=== PATIENT | male | born 1955 | race African-American/Black ===

== ENCOUNTER 2016-07-07 10:02 | Outpatient (CLI) | payer MEDICARE, MEDICAID ==
[2016-07-07 11:33] LABS: Anion Gap 28 mmol/L (10-20); BUN (Urea Nitrogen) 13 mg/dL (8.4-25.7); Calc. Creatinine Clearance 0 mL/min (70-130); Carbon Dioxide 14 mmol/L (23-31); Chloride 94 mmol/L (98-107); Estimated GFR-MDRD 48; Glucose 526 mg/dL (80-115); Potassium 3.6 mmol/L (3.5-5.1); Sodium 132 mmol/L (136-145)
== END 2016-07-07 10:03 | disposition home or self-care (01) ==
LOC: MADLAB 10:02
PROVIDERS: ATTEND Internal Medicine Nephrology
DX: E55.9 Vitamin D deficiency, unspecified (principal); I12.9 Hypertensive chronic kidney disease with stage 1 through stage 4 chronic kidney disease, or unspecified chronic kidney disease; N18.3 Chronic kidney disease, stage 3 (moderate)
CPT/HCPCS: 36415; 80048

== ENCOUNTER 2017-01-08 15:06 | Outpatient (CLI) | payer MEDICAID, MEDICARE ==
[2017-01-08 16:09] LABS: Anion Gap 25 mmol/L (10-20); BUN (Urea Nitrogen) 17 mg/dL (8.4-25.7); Calc. Creatinine Clearance 0 mL/min (70-130); Calcium 9.7 mg/dL (7.8-10.44); Carbon Dioxide 13 mmol/L (23-31); Chloride 99 mmol/L (98-107); Estimated GFR-MDRD 46; Glucose 307 mg/dL (80-115); Sodium 133 mmol/L (136-145)
== END 2017-01-08 15:07 | disposition home or self-care (01) ==
LOC: MADLAB 15:06
PROVIDERS: ATTEND Internal Medicine Nephrology
DX: I12.9 Hypertensive chronic kidney disease with stage 1 through stage 4 chronic kidney disease, or unspecified chronic kidney disease (principal); N18.3 Chronic kidney disease, stage 3 (moderate); E55.9 Vitamin D deficiency, unspecified
CPT/HCPCS: 36415; 80048; 82306; 83970

== ENCOUNTER 2017-02-08 09:03 | Outpatient (CLI) | payer MEDICARE ==
[2017-02-08 09:36] LABS: Hemoglobin A1c 9.9 % (4.0-6.0)
[2017-02-08 09:40] LABS: #Basophils 0.1 thou/uL (0.0-0.2); #Lymphocytes 2.1 thou/uL (1.20-3.40); #Monocytes 0.3 thou/uL (0.11-0.59); #Neutrophils 4.2 thou/uL (1.40-6.50); %Basophils 0.9 % (0.0-1.0); %Eosinophils 0.5 % (0.0-10.0); %Lymphocytes 31.6 % (21.0-51.0); %Monocytes 4.4 % (0.0-10.0); %Neutrophils 62.6 % (42.0-75.0); Mean Corpuscular HGB CONC 34.6 g/dL (32.0-36.0); Mean Corpuscular Hemoglobin 30.1 pg (27.0-31.0); Mean Corpuscular Volume 87.2 fl (80.0-94.0); Mean Platelet Volume 8.7 fL (7.4-10.4); Platelet Count 188 thou/uL (130-400); RBC Distribution Width 13.9 % (11.5-14.5); Red Blood Cell (RBC) Count 3.98 mill/uL (4.70-6.10); White Blood Cell (WBC) Count 6.8 thou/uL (4.8-10.8)
[2017-02-08 14:47] LABS: Potassium 4.4 mmol/L (3.5-5.1); Sodium 140 mmol/L (136-145)
[2017-02-08 14:48] LABS: Anion Gap 18 mmol/L (10-20); BUN (Urea Nitrogen) 25 mg/dL (8.4-25.7); Carbon Dioxide 23 mmol/L (23-31); Chloride 104 mmol/L (98-107)
[2017-02-08 14:49] LABS: Bilirubin, Total 0.7 mg/dL (0.2-1.2); Calc. Creatinine Clearance 0 mL/min (70-130); Calcium 9.8 mg/dL (7.8-10.44); Estimated GFR-MDRD 45; Glucose 289 mg/dL (80-115)
[2017-02-08 14:50] LABS: AST (SGOT) 14 U/L (5-34); Albumin 4.1 g/dL (3.4-4.8); Alkaline Phosphatase 53 U/L (40-150); Globulin 2.9 g/dL (2.4-3.5)
[2017-02-08 14:51] LABS: ALT (SGPT) 16 U/L (8-55)
[2017-02-08 15:21] LABS: Cholesterol 726 mg/dl (< 200 Desired); HDL Cholesterol 25 mg/dL (>60 Neg Risk)
[2017-02-08 15:51] LABS: Triglycerides 2717 mg/dL (Less than 150)
[2017-02-08 17:04] LABS: Creatinine, Urine 148.43 mg/dL (63-166); Microalbumin Urine Less than 1.0 mg/dL (0.5-50.0); Microalbumin/Creat Ratio 6.7 mg/g (Less than 30)
== END 2017-02-08 09:04 ==
LOC: MADLABBHPM 09:03
PROVIDERS: ATTEND Family Medicine
DX: E78.5 Hyperlipidemia, unspecified (principal); E11.65 Type 2 diabetes mellitus with hyperglycemia; I10 Essential (primary) hypertension
CPT/HCPCS: 36415; 80053; 80061; 82043; 83036; 84443; 85025

== ENCOUNTER 2017-10-11 17:36 | Emergency (ER) | payer MEDICARE, MEDICAID ==
[~2017-10-11 17:36] MED LIST: Sodium Chloride 0.9% 1,000 ML BAG ONE; Sodium Chloride 0.9% 100 ML BAG ONE
[2017-10-11 18:28] LABS: ALT (SGPT) 18 U/L (8-55); AST (SGOT) 13 U/L (5-34); Albumin 3.9 g/dL (3.4-4.8); Alkaline Phosphatase 69 U/L (40-150); Anion Gap 24 mmol/L (10-20); BUN (Urea Nitrogen) 31 mg/dL (8.4-25.7); Bilirubin, Total 0.9 mg/dL (0.2-1.2); Calc. Creatinine Clearance 0 mL/min (70-130); Calcium 10.2 mg/dL (7.8-10.44); Carbon Dioxide 16 mmol/L (23-31); Chloride 92 mmol/L (98-107); Estimated GFR-MDRD 29; Globulin 5.4 g/dL (2.4-3.5); Glucose 447 mg/dL (80-115); Potassium 4.7 mmol/L (3.5-5.1); Protein, Total 9.3 g/dL (5.8-8.1); Sodium 127 mmol/L (136-145)
[2017-10-11] MEDS ORDERED: Insulin Regular 300 UNITS/3 ML VIAL ONE (18:34)
[2017-10-11 18:38] LABS: %Neutrophils 70.6 % (42.0-75.0); Hemoglobin 9.5 g/dL (14.0-18.0); Mean Corpuscular HGB CONC 35.6 g/dL (32.0-36.0); Mean Corpuscular Hemoglobin 29.7 pg (27.0-31.0); Mean Corpuscular Volume 83.5 fL (80.0-94.0); Platelet Count 186 thou/uL (130-400); RBC Distribution Width 14.1 % (11.5-14.5); White Blood Cell (WBC) Count 10.9 thou/uL (4.8-10.8)
[2017-10-11 18:39] LABS: #Basophils 0.2 thou/uL (0.0-0.2); #Eosinphils 0.2 thou/uL (0.0-0.7); #Monocytes 0.8 thou/uL (0.11-0.59); #Neutrophils 7.7 thou/uL (1.40-6.50); %Basophils 1.7 % (0.0-1.0); %Eosinophils 1.5 % (0.0-10.0); %Lymphocytes 18.7 % (21.0-51.0); %Monocytes 7.5 % (0.0-10.0)
[2017-10-11 18:52] LABS: Bilirubin Negative (Negative); Blood, Urine Negative (Negative); Clarity Slightly Cloudy (Clear); Glucose, Urine (Dipstick) >=1000 mg/dL (Negative); Leukocyte Small (Negative); Nitrite Negative (Negative); Protein, Urine (Dipstick) Negative (Neg-Trace); Urobilinogen 0.2 mg/dL (0.2-1.0)
[2017-10-11 18:54] LABS: Bacteria/HPF 2+ HPF (None Seen); RBC/HPF 0-3 HPF (0-3); Yeast-All Forms 1+ HPF (None Seen)
[2017-10-11] MEDS ORDERED: cefTRIAXone\\ROCEPHIN 1 GM VIAL ONE (19:20)
== END 2017-10-11 20:09 | disposition home or self-care (01) ==
LOC: MADERS 17:36
DX: E11.65 Type 2 diabetes mellitus with hyperglycemia (principal); E78.5 Hyperlipidemia, unspecified; I10 Essential (primary) hypertension; F32.9 Major depressive disorder, single episode, unspecified; Z79.899 Other long term (current) drug therapy; Z79.82 Long term (current) use of aspirin
CPT/HCPCS: 36416; 80053; 81003; 81015; 85025; 96361; 96365; 96375; J0696; J1815; J7050

== ENCOUNTER 2017-10-15 20:50 | Emergency (ER) | payer MEDICARE, MEDICAID ==
[~2017-10-15 20:50] MED LIST changes: -Sodium Chloride 0.9% 100 ML BAG ONE
[2017-10-15 21:33] LABS: #Lymphocytes 1.9 thou/uL (1.20-3.40); #Monocytes 0.6 thou/uL (0.11-0.59); #Neutrophils 5.8 thou/uL (1.40-6.50); %Basophils 0.5 % (0.0-1.0); %Eosinophils 0.5 % (0.0-10.0); %Lymphocytes 22.4 % (21.0-51.0); %Monocytes 7.4 % (0.0-10.0); %Neutrophils 69.2 % (42.0-75.0); Hemoglobin 9.9 g/dL (14.0-18.0); Mean Corpuscular HGB CONC 34.7 g/dL (32.0-36.0); Mean Corpuscular Hemoglobin 28.5 pg (27.0-31.0); Mean Corpuscular Volume 82.3 fl (80.0-94.0); Mean Platelet Volume 7.8 fL (7.4-10.4); Platelet Count 227 thou/uL (130-400); RBC Distribution Width 14.1 % (11.5-14.5); Red Blood Cell (RBC) Count 3.49 mill/uL (4.70-6.10); White Blood Cell (WBC) Count 8.4 thou/uL (4.8-10.8)
[2017-10-15 21:36] LABS: PTT 35.3 SEC (22.9-36.1); Prothrombin Time 13.6 SEC (12.0-14.7)
[2017-10-15 21:48] LABS: ALT (SGPT) 29 U/L (8-55); AST (SGOT) 39 U/L (5-34); Albumin 4.1 g/dL (3.4-4.8); Alkaline Phosphatase 65 U/L (40-150); Anion Gap 18 mmol/L (10-20); BUN (Urea Nitrogen) 45 mg/dL (8.4-25.7); Bilirubin, Total 0.7 mg/dL (0.2-1.2); CK (CPK) 493 U/L (30-200); Calc. Creatinine Clearance 0 mL/min (70-130); Calcium 9.6 mg/dL (7.8-10.44); Chloride 103 mmol/L (98-107); Estimated GFR-MDRD 27; Globulin 4.2 g/dL (2.4-3.5); Glucose 104 mg/dL (80-115); Potassium 4.2 mmol/L (3.5-5.1); Protein, Total 8.3 g/dL (5.8-8.1); Sodium 136 mmol/L (136-145)
[2017-10-15 21:49] LABS: CKMB 3.3 ng/mL (0-6.6)
[2017-10-15 21:53] LABS: Carbon Dioxide 19 mmol/L (23-31)
--- NOTE | 2017-10-15 22:03 | CT ---
CT OF THE BRAIN WITHOUT CONTRAST: 10/15/17 COMPARISON: 02/12/16. HISTORY: Syncope. TECHNIQUE: Multiple contiguous axial images were obtained in a CT of the brain without contrast. FINDINGS: There is scattered hypodensities in the subcortical and periventricular white matter, likely secondar y to small vessel ischemic disease. No large confluent infarction is seen. There is no evidence of hy drocephalus, intracranial hemorrhage or extra-axial fluid collection. The calvarium and overlying soft tissues are unremarkable. The visualized paranasal sinuses and masto id air cells are well aerated. IMPRESSION: No evidence of acute intracranial abnormality. POS: [facility]
--- NOTE | 2017-10-15 22:08 | CT ---
CT CERVICAL SPINE WITHOUT CONTRAST: 10/15/17 COMPARISON: None. HISTORY: Syncope, fall, and neck pain. TECHNIQUE: Multiple contiguous axial images were obtained in a CT of the cervical spine without contrast. Sagitt al and coronal reformats were performed. FINDINGS: There are large bulky anterior bridging osteophytes in the cervical spine. The vertebral bodies demon strate normal height and alignment without acute fracture or subluxation. No prevertebral soft tissue swelling is seen. The posterior facets are well aligned. Normal alignment of the skull base with the cervical spine is seen. Calcifications are seen in the left carotid artery. IMPRESSION: Degenerative changes of the cervical spine without acute osseous abnormality. POS: [facility]
--- NOTE | 2017-10-15 22:10 | RAD ---
SINGLE VIEW OF THE CHEST: 10/15/17 COMPARISON: 02/09/16 HISTORY: Syncope. FINDINGS: Single view of the chest shows a normal sized cardiomediastinal silhouette. There is no evidence of c onsolidation, mass, or pleural effusion. The bones are unremarkable. IMPRESSION: No evidence of acute cardiopulmonary disease. POS: [facility]
[2017-10-15] MEDS ORDERED: Ondansetron HCl/PF 4 MG/2 ML Vial ONE (22:21)
[2017-10-15] MEDS ORDERED: Morphine 10 MG/ML VIAL ONE (22:30)
== END 2017-10-15 23:52 | disposition home or self-care (01) ==
LOC: MADERS 20:50
DX: R55 Syncope and collapse (principal); I10 Essential (primary) hypertension; E11.9 Type 2 diabetes mellitus without complications; E78.5 Hyperlipidemia, unspecified; F32.9 Major depressive disorder, single episode, unspecified; Z79.82 Long term (current) use of aspirin; Z79.84 Long term (current) use of oral hypoglycemic drugs; Z79.899 Other long term (current) drug therapy; Z79.02 Long term (current) use of antithrombotics/antiplatelets
CPT/HCPCS: 70450; 71045; 72125; 80053; 82553; 83880; 84484; 85025; 85610; 85730; 93005; 94760; 96361; 96374; 96375; J2270; J2405; J7050

== ENCOUNTER 2017-12-03 10:15 | Outpatient (CLI) | payer MEDICARE, MEDICAID ==
[2017-12-03 11:09] LABS: Anion Gap 22 mmol/L (10-20); BUN (Urea Nitrogen) 28 mg/dL (8.4-25.7); Calc. Creatinine Clearance 0 mL/min (70-130); Calcium 9.9 mg/dL (7.8-10.44); Carbon Dioxide 14 mmol/L (23-31); Chloride 103 mmol/L (98-107); Estimated GFR-MDRD 35; Glucose 282 mg/dL (80-115); Potassium 4.8 mmol/L (3.5-5.1); Sodium 134 mmol/L (136-145)
== END 2017-12-03 10:16 | disposition home or self-care (01) ==
LOC: MADLAB 10:15
PROVIDERS: ATTEND Internal Medicine Nephrology
DX: I12.9 Hypertensive chronic kidney disease with stage 1 through stage 4 chronic kidney disease, or unspecified chronic kidney disease (principal); N18.3 Chronic kidney disease, stage 3 (moderate)
CPT/HCPCS: 36415; 80048; 83970

== ENCOUNTER 2018-03-22 16:39 | Emergency (ER) | payer MEDICARE, MEDICAID ==
--- NOTE | 2018-03-22 17:53 | RAD ---
TWO VIEWS RIGHT FOREARM: 03/22/18 HISTORY: Injury. AP and lateral views of the right forearm obtained. Two views right forearm demonstrate no evidence of right forearm fractures, subluxations, or bony les ions. IMPRESSION: Normal two views right forearm. POS: [facility]
== END 2018-03-22 18:15 | disposition home or self-care (01) ==
LOC: MADERS 16:39
DX: S50.11XA Contusion of right forearm, initial encounter (principal); E11.9 Type 2 diabetes mellitus without complications; E78.5 Hyperlipidemia, unspecified; I10 Essential (primary) hypertension; F32.9 Major depressive disorder, single episode, unspecified; W22.8XXA Striking against or struck by other objects, initial encounter

== ENCOUNTER 2019-06-23 08:37 | Emergency (ER) | payer MEDICARE, OTHER | END 2019-06-23 09:36 | disposition home or self-care (01) | LOC: MADERS 08:37 | DX: T21.11XA Burn of first degree of chest wall, initial encounter (principal); E78.5 Hyperlipidemia, unspecified; E11.9 Type 2 diabetes mellitus without complications; I10 Essential (primary) hypertension; F32.9 Major depressive disorder, single episode, unspecified; Z79.891 Long term (current) use of opiate analgesic; Z79.899 Other long term (current) drug therapy; Z79.82 Long term (current) use of aspirin; X11.8XXA Contact with other hot tap-water, initial encounter | CPT/HCPCS: 99282; G0390 ==

== ENCOUNTER 2020-01-15 15:23 | Inpatient (IN) | payer MEDICARE, OTHER ==
[2020-01-15] MEDS ORDERED: Ondansetron ODT 4 MG TAB PO PRN (17:20)
[2020-01-15] MEDS ORDERED: Dextrose 50% Abboject 50 ML SYRINGE SLOW IVP PRN (18:05)
--- NOTE | 2020-01-15 20:51 | HP ---
PRIMARY CARE PHYSICIAN: Basilio Persaud MD REASON FOR ADMISSION: For skilled rehabilitation at [facility] status post physical deconditioning due to hypertensive urgency, gouty arthritis, and anemia due to chronic kidney disease. HISTORY OF PRESENT ILLNESS: Mr. Travis Michel is a 64-year-old male with mild developmental delay. The patient does have a history of hypertension, history of previous stroke with mild left-sided weakness, status post CVA. The patient has a history of uncontrolled diabetes, dyslipidemia, chronic kidney disease stage 3. The patient had presented to the emergency room after falling from his walker from a sitting position. He denies any loss of consciousness, but he stated he hit the back of his head and his right arm. EMS was called and since the fall, he was having occasional headaches and blurry vision. The patient also had a fall on December 10, 2019, in which he sustained right leg pain and right elbow pain and swelling. En route to the emergency room, patient had a blood pressure of 220/120. He was given nitroglycerin, Zofran, hydralazine, and labetalol, which helped his blood pressure. His troponin was noted to be elevated at 0.037. The patient continued to complain of right elbow pain and right elbow x-ray showed no fracture, but significant swelling, pain, and decreased range of motion, so patient was splinted and put in a sling. The patient was subsequently admitted for hypertensive urgency, [id number] TN type 2, fall, and elbow sprain. The patient was also noted to have a low-grade fever, so he was started on IV antibiotics for possible septic arthritis. He was started on Rocephin and vancomycin. Blood culture and urine culture were also obtained. During hospitalization, the patient was able to follow up, evaluated by orthopedic surgeon, Dr. Miguel and Dr. Hu. Due to these low-grade fevers, they initially suspected septic arthritis and due to his ESR being elevated and uric acid being elevated, the chances of being a gouty arthritis was also high on the list. The patient underwent a right elbow washout and right I and D on January 05. He continued his IV antibiotics, but by January 07, the cultures showed gouty arthritis and he was started on prednisone as he could not tolerate the colchicine due to his Coreg and he could not tolerate indomethacin due to his chronic kidney disease. The patient was seen by edge grinder machine, Dr. Steele, due to his chronic kidney disease and labile blood pressures. The patient was also noted to be severely anemic, possibly due to his chronic kidney disease, so he received 1 unit of PRBCs as his hemoglobin was 6.7. The patient continued to complain of lower leg pain and right knee pain. X-ray of the knee showed no acute osseous abnormality, but did show osteoarthritis with small suprapatellar joint effusion. Due to patient's uncontrolled diabetes, his hemoglobin A1c during hospitalization was 10.9 and due to the prednisone, his blood glucose was elevated and this was managed with insulin. The patient was started on 10,000 units subcu weekly Epogen and 1.25 weekly ergocalciferol. The patient's blood pressure medicines readjusted due to his labile blood pressures and the recommendation was to discontinue all nonsteroid anti-inflammatory medicines and МАРИНА inhibitors. The patient progressively improved. His elbow was much better. He could move it slowly, but complained of occasional pain. The patient, due to complaining of lower leg extremity pain, also underwent bilateral lower extremity venous Doppler and this showed no evidence of any DVT in his lower extremities. The patient was able to participate in physical therapy. His blood pressure medications were adjusted and the decision was made to transfer the patient to [place] for skilled rehabilitation prior to discharge back to his home. On day of discharge, patient's hemoglobin was 8.2, hematocrit 23.4, WBC 11.7, most likely due to prednisone and his platelets 389. Upon evaluation of patient today, he is glad to be in facility. He reports his sisters and family members are sometimes too busy to administer his insulin at home. He is excited to be in facility and get therapy prior to discharge back to living with his sister. He denies any chest pain, shortness of breath, palpitation. He complains of right knee pain and mild right elbow pain. He denies any headaches or blurry vision. PAST MEDICAL HISTORY: Hypertension, hyperlipidemia, mild developmental delay, previous CVA, diabetes type 2 uncontrolled, chronic kidney disease stage 3. PAST SURGICAL HISTORY: Denies. FAMILY HISTORY: Significant for congestive heart failure. Significant for diabetes type 2. SOCIAL HISTORY: The patient lives at home with his sister. Denies tobacco, alcohol, or illicit drug use. ALLERGIES: BACTRIM. REVIEW OF SYSTEMS: GENERAL: Denies fever, chills, weight loss, decrease in appetite, or sleep changes. EYES: Denies any eye pain. Reports some blurry vision occasionally. ENT: Denies nasal congestion. RESPIRATORY: Denies cough, shortness of breath. CARDIOVASCULAR: Denies chest pain, palpitation, edema. GASTROINTESTINAL: Denies nausea, vomiting, abdominal pain, diarrhea, or constipation. GENITOURINARY: Denies incontinence. SKIN: Denies any rashes. MUSCULOSKELETAL: Complains of joint pain. NEUROLOGICAL: Denies any syncope. MEDICATIONS: Ergocalciferol 1.25 p.o. q.7 days, Epoetin 10,000 units subcu q.7 days, Plavix 75 mg daily, Coreg 12.5 b.i.d., Lipitor 80 at bedtime, aspirin 81 daily, Tylenol 650 q.4 hours p.r.n. fever, Neurontin 400 b.i.d., ferrous sulfate 325 daily, glipizide 10 mg daily, insulin glargine 15 units b.i.d., lidocaine patch to skin 2 daily, minoxidil 5 mg daily, Humalog 5 units before meals, CoQ10 300 mg at bedtime, sodium bicarb 650 b.i.d. PHYSICAL EXAMINATION: VITAL SIGNS: Temperature 98.7, pulse 91, respirations 18, O2 saturation 97% on room air, blood pressure 181/84. GENERAL: The patient is alert, awake, and oriented x3. Sitting up in bed, no apparent distress. HEENT: Normocephalic, atraumatic. PERRLA. No scleral icterus. Moist oral mucous membrane. Poor dentition. NECK: Trachea midline. No LAD. CHEST: S1, S2. No murmurs. Nontender. Pulses bilaterally present. LUNGS: Clear to auscultation bilaterally. ABDOMEN: Positive bowel sounds. Soft, nontender, nondistended. MUSCULOSKELETAL: Able to move all extremities. No edema noted. Tenderness to right elbow and right knee. NEUROLOGIC: Cranial nerves 2 through 12 grossly intact. No focal deficits. PSYCHIATRIC: Normal mood and affect. Mild MR noted. ASSESSMENT: 1. Physical deconditioning. 2. Chronic kidney disease stage 3. 3. Uncontrolled diabetes type 2. 4. Anemia and chronic kidney disease. 5. Gouty arthropathy. 6. Hypertension. 7. Acute kidney injury. 8. Mild developmental delay. PLAN: The patient is a 64-year-old male, admitted for skilled rehabilitation due to physical deconditioning status post gouty arthropathy, hypertensive urgency, and anemia of chronic kidney disease. We will consult Physical Therapy to help with gait, balance, and strengthening. We will consult Occupational Therapy to help with activities of daily living prior to discharge back to his home. We will place the patient on Accu-Chek before meals and at bedtime. We will place the patient on 1800 carb-consistent diet. We will monitor his kidney function and CBC closely. We will resume home medications. ESTIMATED LENGTH OF STAY: 2 to 3 weeks. CODE STATUS: The patient is a full code. Job ID: [id number] MTDD
[2020-01-15] MEDS: Sodium Bicarbonate Tab 325 MG TAB PO SCH (21:20)
[2020-01-15] MEDS: Atorvastatin Calcium 40 MG TAB PO SCH (21:20)
[2020-01-15] MEDS: Ubidecarenone 50 MG CAP PO SCH (21:20)
[2020-01-15] MEDS: Lantus 1000 UNITS/10 ML VIAL SC SCH (21:21)
[2020-01-15] MEDS: Carvedilol 6.25 MG TAB PO SCH (21:21)
[2020-01-15] MEDS: Gabapentin 400 MG CAP PO SCH (21:21)
[2020-01-16] MEDS ORDERED: FERROUS GLUCONATE 27 MG PO SCH (08:00)
[2020-01-16] MEDS: Clopidogrel Bisulfate 75 MG TAB PO SCH (08:59)
[2020-01-16] MEDS: Minoxidil 2.5 MG TAB PO SCH ×2 (09:00→09:05)
[2020-01-16] MEDS ORDERED: EPOETIN ALFA-EPBX (NON-ESRD) 10,000 UNIT/ML VIAL SC SCH (09:00)
[2020-01-16] MEDS: Aspirin 81 mg Enteric Coated Tablet PO SCH (09:03)
[2020-01-16] MEDS: Sodium Bicarbonate Tab 325 MG TAB PO SCH ×2 (09:03→20:37)
[2020-01-16] MEDS: Famotidine 20 MG TAB PO SCH (09:03)
[2020-01-16] MEDS: Acetaminophen 325 MG TAB PO PRN (09:03)
[2020-01-16] MEDS: Carvedilol 6.25 MG TAB PO SCH ×2 (09:04→20:37)
[2020-01-16] MEDS: HumaLOG 300 UNITS/3 ML VIAL SC SCH ×3 (09:04→17:05)
[2020-01-16] MEDS: Gabapentin 400 MG CAP PO SCH ×3 (09:05→20:37)
[2020-01-16] MEDS: Lantus 1000 UNITS/10 ML VIAL SC SCH (20:36)
[2020-01-16] MEDS: Atorvastatin Calcium 40 MG TAB PO SCH (20:37)
[2020-01-16] MEDS: Ubidecarenone 50 MG CAP PO SCH (20:37)
[2020-01-17] MEDS: Acetaminophen 325 MG TAB PO PRN ×2 (03:54→20:09)
[2020-01-17] MEDS: Famotidine 20 MG TAB PO SCH (08:52)
[2020-01-17] MEDS: Sodium Bicarbonate Tab 325 MG TAB PO SCH ×2 (08:52→20:12)
[2020-01-17] MEDS: Aspirin 81 mg Enteric Coated Tablet PO SCH (08:52)
[2020-01-17] MEDS: Gabapentin 400 MG CAP PO SCH ×3 (08:52→20:13)
[2020-01-17] MEDS: Ergocalciferol 1.25 MG(50,000 UNITS) CAP PO SCH (08:52)
[2020-01-17] MEDS: Carvedilol 6.25 MG TAB PO SCH ×2 (08:52→20:12)
[2020-01-17] MEDS: Clopidogrel Bisulfate 75 MG TAB PO SCH (08:52)
[2020-01-17] MEDS: HumaLOG 300 UNITS/3 ML VIAL SC SCH ×3 (08:53→16:48)
[2020-01-17] MEDS: Minoxidil 2.5 MG TAB PO SCH ×4 (08:59→09:23)
[2020-01-17] MEDS: Lantus 1000 UNITS/10 ML VIAL SC SCH (20:09)
[2020-01-17] MEDS: Ubidecarenone 50 MG CAP PO SCH (20:11)
[2020-01-17] MEDS: Atorvastatin Calcium 40 MG TAB PO SCH (20:12)
[2020-01-18] MEDS: Acetaminophen 325 MG TAB PO PRN (04:12)
[2020-01-18] MEDS: HumaLOG 300 UNITS/3 ML VIAL SC SCH ×3 (08:43→17:30)
[2020-01-18] MEDS: Famotidine 20 MG TAB PO SCH (08:44)
[2020-01-18] MEDS: Gabapentin 400 MG CAP PO SCH ×3 (08:44→21:59)
[2020-01-18] MEDS: Clopidogrel Bisulfate 75 MG TAB PO SCH (08:44)
[2020-01-18] MEDS: Carvedilol 6.25 MG TAB PO SCH ×2 (08:44→21:59)
[2020-01-18] MEDS: Aspirin 81 mg Enteric Coated Tablet PO SCH (08:44)
[2020-01-18] MEDS: Sodium Bicarbonate Tab 325 MG TAB PO SCH ×2 (08:44→21:59)
[2020-01-18] MEDS: Minoxidil 2.5 MG TAB PO SCH (09:01)
[2020-01-18] MEDS: EPOETIN ALFA-EPBX (NON-ESRD) 10,000 UNIT/ML VIAL SC SCH (09:02)
[2020-01-18] MEDS: Lantus 1000 UNITS/10 ML VIAL SC SCH (21:46)
[2020-01-18] MEDS: Ubidecarenone 50 MG CAP PO SCH (21:58)
[2020-01-18] MEDS: Atorvastatin Calcium 40 MG TAB PO SCH (21:59)
[2020-01-19] MEDS: Gabapentin 400 MG CAP PO SCH ×3 (08:20→20:46)
[2020-01-19] MEDS: Sodium Bicarbonate Tab 325 MG TAB PO SCH ×2 (08:20→20:46)
[2020-01-19] MEDS: Aspirin 81 mg Enteric Coated Tablet PO SCH (08:20)
[2020-01-19] MEDS: Carvedilol 6.25 MG TAB PO SCH ×2 (08:21→20:47)
[2020-01-19] MEDS: Famotidine 20 MG TAB PO SCH (08:21)
[2020-01-19] MEDS: HumaLOG 300 UNITS/3 ML VIAL SC SCH ×3 (08:23→17:01)
[2020-01-19] MEDS: Clopidogrel Bisulfate 75 MG TAB PO SCH (08:23)
[2020-01-19] MEDS ORDERED: Minoxidil 2.5 MG TAB PO SCH (10:15)
[2020-01-19] MEDS: traMADol HCl 50 MG TAB PO PRN (15:22)
[2020-01-19] MEDS: Lantus 1000 UNITS/10 ML VIAL SC SCH (20:47)
[2020-01-19] MEDS: Atorvastatin Calcium 40 MG TAB PO SCH (20:47)
[2020-01-19] MEDS: Ubidecarenone 50 MG CAP PO SCH (20:47)
[2020-01-19] MEDS: Acetaminophen 325 MG TAB PO PRN (20:47)
[2020-01-20] MEDS: Aspirin 81 mg Enteric Coated Tablet PO SCH (09:06)
[2020-01-20] MEDS: Minoxidil 2.5 MG TAB PO SCH (09:06)
[2020-01-20] MEDS: HumaLOG 300 UNITS/3 ML VIAL SC SCH ×3 (09:06→17:03)
[2020-01-20] MEDS: Sodium Bicarbonate Tab 325 MG TAB PO SCH ×2 (09:06→21:48)
[2020-01-20] MEDS: Carvedilol 6.25 MG TAB PO SCH ×2 (09:06→21:48)
[2020-01-20] MEDS: Clopidogrel Bisulfate 75 MG TAB PO SCH (09:07)
[2020-01-20] MEDS: Gabapentin 400 MG CAP PO SCH ×3 (09:07→21:48)
[2020-01-20] MEDS: Famotidine 20 MG TAB PO SCH (09:07)
[2020-01-20] MEDS: traMADol HCl 50 MG TAB PO PRN (09:09)
[2020-01-20] MEDS: Ubidecarenone 50 MG CAP PO SCH (21:47)
[2020-01-20] MEDS: Acetaminophen 325 MG TAB PO PRN (21:48)
[2020-01-20] MEDS: Atorvastatin Calcium 40 MG TAB PO SCH (21:48)
[2020-01-20] MEDS: Lantus 1000 UNITS/10 ML VIAL SC SCH (21:49)
[2020-01-21] MEDS: Minoxidil 2.5 MG TAB PO SCH (08:16)
[2020-01-21] MEDS: Aspirin 81 mg Enteric Coated Tablet PO SCH (08:17)
[2020-01-21] MEDS: Sodium Bicarbonate Tab 325 MG TAB PO SCH ×2 (08:17→20:03)
[2020-01-21] MEDS: HumaLOG 300 UNITS/3 ML VIAL SC SCH ×3 (08:17→17:10)
[2020-01-21] MEDS: Gabapentin 400 MG CAP PO SCH ×3 (08:17→20:04)
[2020-01-21] MEDS: Carvedilol 6.25 MG TAB PO SCH ×2 (08:17→20:04)
[2020-01-21] MEDS: Famotidine 20 MG TAB PO SCH (08:17)
[2020-01-21] MEDS: Clopidogrel Bisulfate 75 MG TAB PO SCH (08:17)
[2020-01-21] MEDS: HYDROcodone/Acetaminophen 5/325 mg Tablet PO PRN ×3 (08:18→20:04)
[2020-01-21] MEDS: Ubidecarenone 50 MG CAP PO SCH (20:03)
[2020-01-21] MEDS: Atorvastatin Calcium 40 MG TAB PO SCH (20:04)
[2020-01-21] MEDS: Lantus 1000 UNITS/10 ML VIAL SC SCH (21:39)
[2020-01-22] MEDS: HYDROcodone/Acetaminophen 5/325 mg Tablet PO PRN ×3 (01:42→14:51)
[2020-01-22] MEDS: Famotidine 20 MG TAB PO SCH (09:00)
[2020-01-22] MEDS: Gabapentin 400 MG CAP PO SCH ×3 (09:00→21:32)
[2020-01-22] MEDS: Clopidogrel Bisulfate 75 MG TAB PO SCH (09:00)
[2020-01-22] MEDS: Minoxidil 2.5 MG TAB PO SCH (09:00)
[2020-01-22] MEDS: Carvedilol 6.25 MG TAB PO SCH ×2 (09:00→21:32)
[2020-01-22] MEDS: Aspirin 81 mg Enteric Coated Tablet PO SCH (09:00)
[2020-01-22] MEDS: Sodium Bicarbonate Tab 325 MG TAB PO SCH ×2 (09:00→21:33)
[2020-01-22] MEDS: HumaLOG 300 UNITS/3 ML VIAL SC SCH ×3 (09:01→17:11)
[2020-01-22] MEDS: Acetaminophen 325 MG TAB PO PRN ×2 (13:42→21:32)
[2020-01-22 19:08] LABS: ALT (SGPT) 49 U/L (8-55); AST (SGOT) 36 U/L (5-34); Albumin 3.1 g/dL (3.4-4.8); Alkaline Phosphatase 271 U/L (40-110); Anion Gap 16 mmol/L (10-20); BUN (Urea Nitrogen) 40 mg/dL (8.4-25.7); Bilirubin, Total 0.5 mg/dL (0.2-1.2); Calc. Creatinine Clearance 31 mL/min (70-130); Calcium 9.7 mg/dL (7.8-10.44); Carbon Dioxide 22 mmol/L (23-31); Chloride 103 mmol/L (98-107); Estimated GFR-MDRD 24; Globulin 4.3 g/dL (2.4-3.5); Glucose 158 mg/dL (80-115); Potassium 5.3 mmol/L (3.5-5.1); Protein, Total 7.4 g/dL (5.8-8.1); Sodium 136 mmol/L (136-145)
[2020-01-22 19:13] LABS: Mean Corpuscular Hemoglobin 28.3 pg (27.0-31.0); Mean Corpuscular Volume 85.9 fL (78.0-98.0); Mean Platelet Volume 6.8 fL (7.4-10.4); Platelet Count 192 thou/uL (130-400); RBC Distribution Width 15.8 % (11.5-14.5); Red Blood Cell (RBC) Count 2.46 mill/uL (4.70-6.10); White Blood Cell (WBC) Count 11.2 thou/uL (4.8-10.8)
[2020-01-22 19:14] LABS: Hypochromia SLIGHT = 6-15 cells (100X) (0-5/hpf); Lymphocytes 5 % (21-51); MDiff Complete? YES; Monocytes 4 % (0-10); Neutrophil 83 % (42-75); Platelet Morphology Comment Appears Adequate; Reactive Lymphocytes 8 % (0-10)
[2020-01-22] MEDS: Ubidecarenone 50 MG CAP PO SCH (21:32)
[2020-01-22] MEDS: Atorvastatin Calcium 40 MG TAB PO SCH (21:32)
[2020-01-22] MEDS: Lantus 1000 UNITS/10 ML VIAL SC SCH (21:33)
[2020-01-23 00:31] LABS: Bilirubin Negative (Negative); Blood, Urine Negative (Negative); Clarity Clear (Clear); Glucose, Urine (Dipstick) Negative (Negative); Ketone, Urine Negative (Negative); Leukocyte Negative (Negative); Nitrite Negative (Negative); Protein, Urine (Dipstick) Negative (Neg-Trace); Specific Gravity, Urine 1.015 (1.005-1.030); Urobilinogen 0.2 mg/dL (Less than 2)
[2020-01-23 00:33] LABS: Bacteria/HPF None Seen HPF (None Seen); RBC/HPF 0-3 HPF (0-3); Squamous Epithelial 0-3 HPF (0-3); WBC/HPF 0-3 HPF (0-3)
[2020-01-23] MEDS: Senokot S 8.6-50 MG TAB PO PRN (02:14)
[2020-01-23] MEDS: Acetaminophen 325 MG TAB PO PRN ×2 (02:14→21:22)
[2020-01-23 07:42] LABS: #Basophils 0.1 thou/uL (0.0-0.2); #Eosinphils 0.1 thou/uL (0.0-0.7); #Lymphocytes 1.1 thou/uL (1.20-3.40); #Monocytes 0.8 thou/uL (0.11-0.59); #Neutrophils 6.5 thou/uL (1.40-6.50); %Basophils 0.6 % (0.0-1.0); %Eosinophils 0.8 % (0.0-10.0); %Lymphocytes 13.1 % (21.0-51.0); %Monocytes 9.2 % (0.0-10.0); %Neutrophils 76.4 % (42.0-75.0); Hemoglobin 6.8 g/dL (14.0-18.0); Mean Corpuscular HGB CONC 32.2 g/dL (32.0-36.0); Mean Corpuscular Hemoglobin 27.5 pg (27.0-31.0); Mean Corpuscular Volume 85.4 fL (78.0-98.0); Platelet Count 169 thou/uL (130-400); RBC Distribution Width 15.6 % (11.5-14.5); Red Blood Cell (RBC) Count 2.47 mill/uL (4.70-6.10); White Blood Cell (WBC) Count 8.5 thou/uL (4.8-10.8)
[2020-01-23 07:55] LABS: Anion Gap 18 mmol/L (10-20); BUN (Urea Nitrogen) 39 mg/dL (8.4-25.7); Calc. Creatinine Clearance 37 mL/min (70-130); Calcium 9.7 mg/dL (7.8-10.44); Carbon Dioxide 23 mmol/L (23-31); Chloride 105 mmol/L (98-107); Estimated GFR-MDRD 29; Glucose 67 mg/dL (80-115); Potassium 4.8 mmol/L (3.5-5.1); Sodium 141 mmol/L (136-145)
[2020-01-23] MEDS: Sodium Bicarbonate Tab 325 MG TAB PO SCH ×2 (08:13→21:11)
[2020-01-23] MEDS: Minoxidil 2.5 MG TAB PO SCH (08:14)
[2020-01-23] MEDS: Clopidogrel Bisulfate 75 MG TAB PO SCH (08:14)
[2020-01-23] MEDS: Famotidine 20 MG TAB PO SCH (08:14)
[2020-01-23] MEDS: Aspirin 81 mg Enteric Coated Tablet PO SCH (08:14)
[2020-01-23] MEDS: Gabapentin 400 MG CAP PO SCH ×3 (08:14→21:11)
[2020-01-23] MEDS: Carvedilol 6.25 MG TAB PO SCH ×2 (08:14→21:11)
[2020-01-23] MEDS: HYDROcodone/Acetaminophen 5/325 mg Tablet PO PRN ×2 (08:16→18:06)
[2020-01-23] MEDS: HumaLOG 300 UNITS/3 ML VIAL SC SCH ×3 (08:17→16:52)
[2020-01-23] MEDS: Ubidecarenone 50 MG CAP PO SCH (21:11)
[2020-01-23] MEDS: Atorvastatin Calcium 40 MG TAB PO SCH (21:11)
[2020-01-23] MEDS: Lantus 1000 UNITS/10 ML VIAL SC SCH (21:12)
[2020-01-24] MEDS: HYDROcodone/Acetaminophen 5/325 mg Tablet PO PRN ×3 (01:24→20:10)
[2020-01-24 05:59] LABS: #Basophils 0.1 thou/uL (0.0-0.2); #Eosinphils 0.1 thou/uL (0.0-0.7); #Monocytes 0.8 thou/uL (0.11-0.59); #Neutrophils 6.4 thou/uL (1.40-6.50); %Basophils 0.7 % (0.0-1.0); %Eosinophils 0.7 % (0.0-10.0); %Monocytes 9.3 % (0.0-10.0); %Neutrophils 77.3 % (42.0-75.0); Hemoglobin 6.4 g/dL (14.0-18.0); Mean Corpuscular HGB CONC 31.1 g/dL (32.0-36.0); Mean Corpuscular Hemoglobin 26.6 pg (27.0-31.0); Mean Corpuscular Volume 85.6 fL (78.0-98.0); Mean Platelet Volume 6.2 fL (7.4-10.4); Platelet Count 165 thou/uL (130-400); RBC Distribution Width 15.7 % (11.5-14.5); Red Blood Cell (RBC) Count 2.41 mill/uL (4.70-6.10); White Blood Cell (WBC) Count 8.3 thou/uL (4.8-10.8)
[2020-01-24] MEDS: HumaLOG 300 UNITS/3 ML VIAL SC SCH ×4 (08:05→16:27)
[2020-01-24] MEDS: Clopidogrel Bisulfate 75 MG TAB PO SCH (08:06)
[2020-01-24] MEDS: Sodium Bicarbonate Tab 325 MG TAB PO SCH ×2 (08:06→20:09)
[2020-01-24] MEDS: Gabapentin 400 MG CAP PO SCH ×3 (08:06→20:09)
[2020-01-24] MEDS: Ergocalciferol 1.25 MG(50,000 UNITS) CAP PO SCH (08:06)
[2020-01-24] MEDS: Famotidine 20 MG TAB PO SCH (08:07)
[2020-01-24] MEDS: Aspirin 81 mg Enteric Coated Tablet PO SCH (08:07)
[2020-01-24] MEDS: Carvedilol 6.25 MG TAB PO SCH ×2 (08:07→20:10)
[2020-01-24] MEDS: Minoxidil 2.5 MG TAB PO SCH (08:07)
[2020-01-24] MEDS: Senokot S 8.6-50 MG TAB PO PRN (08:09)
[2020-01-24] MEDS ORDERED: Docusate 100 MG CAP PO SCH (10:00)
[2020-01-24] MEDS ORDERED: Polyethylene Glycol 3350 17 GM Packet PO SCH (10:00)
[2020-01-24 14:11] LABS: SARS-CoV-2 MS2 Positive; SARS-CoV-2 N Gene Negative; SARS-CoV-2 S Gene Negative; SARS-CoV-2 by NAA Not Detected (NotDetected); SARS-CoV-2 orf1ab Negative
--- NOTE | 2020-01-24 15:57 | RAD ---
RIGHT KNEE 3 VIEWS: HISTORY: Fall, right knee pain and swelling. FINDINGS: Degenerative changes are present. No definite fracture is seen. The possibility of lateral subluxat ion/dislocation of the patella cannot be excluded. Further evaluation with an additional sunrise vie w is recommended. POS: [facility]
[2020-01-24] MEDS: Docusate 100 MG CAP PO SCH (20:09)
[2020-01-24] MEDS: Ubidecarenone 50 MG CAP PO SCH (20:09)
[2020-01-24] MEDS: Atorvastatin Calcium 40 MG TAB PO SCH (20:10)
[2020-01-24] MEDS: Lantus 1000 UNITS/10 ML VIAL SC SCH (20:29)
[2020-01-24 20:52] LABS: Hemoglobin 9.5 g/dL (14.0-18.0)
[2020-01-25] MEDS: HYDROcodone/Acetaminophen 5/325 mg Tablet PO PRN ×2 (02:13→09:52)
[2020-01-25] MEDS: Minoxidil 2.5 MG TAB PO SCH (09:36)
[2020-01-25] MEDS: Carvedilol 6.25 MG TAB PO SCH ×2 (09:36→21:45)
[2020-01-25] MEDS: Docusate 100 MG CAP PO SCH ×2 (09:36→21:45)
[2020-01-25] MEDS: Aspirin 81 mg Enteric Coated Tablet PO SCH (09:36)
[2020-01-25] MEDS: Sodium Bicarbonate Tab 325 MG TAB PO SCH ×2 (09:37→21:44)
[2020-01-25] MEDS: EPOETIN ALFA-EPBX (NON-ESRD) 10,000 UNIT/ML VIAL SC SCH (09:37)
[2020-01-25] MEDS: Famotidine 20 MG TAB PO SCH (09:37)
[2020-01-25] MEDS: HumaLOG 300 UNITS/3 ML VIAL SC SCH ×3 (09:38→17:09)
[2020-01-25] MEDS: Polyethylene Glycol 3350 17 GM Packet PO SCH (09:39)
[2020-01-25] MEDS: Gabapentin 400 MG CAP PO SCH ×4 (09:44→21:46)
[2020-01-25] MEDS ORDERED: predniSONE 20 MG TAB PO SCH ×2 (12:15→13:00)
[2020-01-25] MEDS: Ubidecarenone 50 MG CAP PO SCH (21:37)
[2020-01-25] MEDS: Atorvastatin Calcium 40 MG TAB PO SCH (21:45)
[2020-01-25] MEDS: Lantus 1000 UNITS/10 ML VIAL SC SCH (21:48)
[2020-01-26] MEDS: HumaLOG 300 UNITS/3 ML VIAL SC SCH ×4 (08:46→17:23)
[2020-01-26] MEDS: Polyethylene Glycol 3350 17 GM Packet PO SCH (08:46)
[2020-01-26] MEDS: Sodium Bicarbonate Tab 325 MG TAB PO SCH ×2 (08:47→21:52)
[2020-01-26] MEDS: Gabapentin 400 MG CAP PO SCH ×3 (08:47→21:52)
[2020-01-26] MEDS: Aspirin 81 mg Enteric Coated Tablet PO SCH (08:47)
[2020-01-26] MEDS: Carvedilol 6.25 MG TAB PO SCH ×2 (08:47→21:53)
[2020-01-26] MEDS: predniSONE 20 MG TAB PO SCH (08:48)
[2020-01-26] MEDS: Minoxidil 2.5 MG TAB PO SCH (08:48)
[2020-01-26] MEDS: Famotidine 20 MG TAB PO SCH (08:48)
[2020-01-26] MEDS: Allopurinol 100 MG TAB PO SCH (08:49)
[2020-01-26] MEDS: Docusate 100 MG CAP PO SCH ×2 (08:49→21:52)
[2020-01-26] MEDS: Acetaminophen 325 MG TAB PO PRN (21:52)
[2020-01-26] MEDS: Ubidecarenone 50 MG CAP PO SCH (21:52)
[2020-01-26] MEDS: Lantus 1000 UNITS/10 ML VIAL SC SCH (21:53)
[2020-01-26] MEDS: Atorvastatin Calcium 40 MG TAB PO SCH (21:53)
[2020-01-27] MEDS: HumaLOG 300 UNITS/3 ML VIAL SC SCH ×3 (08:20→17:16)
[2020-01-27] MEDS: Allopurinol 100 MG TAB PO SCH (08:21)
[2020-01-27] MEDS: Sodium Bicarbonate Tab 325 MG TAB PO SCH ×2 (08:21→21:19)
[2020-01-27] MEDS: Famotidine 20 MG TAB PO SCH (08:22)
[2020-01-27] MEDS: Gabapentin 400 MG CAP PO SCH ×3 (08:22→21:19)
[2020-01-27] MEDS: Polyethylene Glycol 3350 17 GM Packet PO SCH (08:22)
[2020-01-27] MEDS: Minoxidil 2.5 MG TAB PO SCH (08:22)
[2020-01-27] MEDS: Aspirin 81 mg Enteric Coated Tablet PO SCH (08:22)
[2020-01-27] MEDS: Docusate 100 MG CAP PO SCH ×2 (08:22→21:19)
[2020-01-27] MEDS: predniSONE 20 MG TAB PO SCH (08:22)
[2020-01-27] MEDS: Carvedilol 6.25 MG TAB PO SCH ×2 (08:22→21:19)
[2020-01-27] MEDS: Ubidecarenone 50 MG CAP PO SCH (21:16)
[2020-01-27] MEDS: Atorvastatin Calcium 40 MG TAB PO SCH (21:18)
[2020-01-27] MEDS ORDERED: HumaLOG 300 UNITS/3 ML VIAL SC PRN (21:36)
[2020-01-27] MEDS: Lantus 1000 UNITS/10 ML VIAL SC SCH (21:36)
[2020-01-28] MEDS: HumaLOG 300 UNITS/3 ML VIAL SC SCH ×3 (09:16→17:19)
[2020-01-28] MEDS: predniSONE 20 MG TAB PO SCH (09:18)
[2020-01-28] MEDS: Carvedilol 6.25 MG TAB PO SCH ×2 (09:19→21:11)
[2020-01-28] MEDS: Aspirin 81 mg Enteric Coated Tablet PO SCH (09:19)
[2020-01-28] MEDS: Gabapentin 400 MG CAP PO SCH ×3 (09:19→21:12)
[2020-01-28] MEDS: Famotidine 20 MG TAB PO SCH (09:19)
[2020-01-28] MEDS: Docusate 100 MG CAP PO SCH ×2 (09:19→21:12)
[2020-01-28] MEDS: Sodium Bicarbonate Tab 325 MG TAB PO SCH ×2 (09:19→21:13)
[2020-01-28] MEDS: Minoxidil 2.5 MG TAB PO SCH (09:19)
[2020-01-28] MEDS: Allopurinol 100 MG TAB PO SCH (09:20)
[2020-01-28] MEDS: Polyethylene Glycol 3350 17 GM Packet PO SCH (09:20)
[2020-01-28] MEDS: Ubidecarenone 50 MG CAP PO SCH (21:12)
[2020-01-28] MEDS: Atorvastatin Calcium 40 MG TAB PO SCH (21:13)
[2020-01-28] MEDS: Lantus 1000 UNITS/10 ML VIAL SC SCH (21:21)
[2020-01-28] MEDS ORDERED: Dextrose 5% in Water 1,000 ML IV PRN (22:32)
[2020-01-28] MEDS ORDERED: Dextrose 50% Abboject 50 ML SYRINGE IVP PRN (22:32)
[2020-01-28] MEDS ORDERED: HumaLOG 300 UNITS/3 ML VIAL SC SCH (22:45)
[2020-01-29] MEDS: Polyethylene Glycol 3350 17 GM Packet PO SCH (08:05)
[2020-01-29] MEDS: Aspirin 81 mg Enteric Coated Tablet PO SCH (08:09)
[2020-01-29] MEDS: Gabapentin 400 MG CAP PO SCH ×3 (08:09→20:50)
[2020-01-29] MEDS: predniSONE 20 MG TAB PO SCH (08:09)
[2020-01-29] MEDS: Famotidine 20 MG TAB PO SCH (08:09)
[2020-01-29] MEDS: Sodium Bicarbonate Tab 325 MG TAB PO SCH ×2 (08:09→20:55)
[2020-01-29] MEDS: Minoxidil 2.5 MG TAB PO SCH (08:10)
[2020-01-29] MEDS: Docusate 100 MG CAP PO SCH ×2 (08:10→20:51)
[2020-01-29] MEDS: Allopurinol 100 MG TAB PO SCH (08:10)
[2020-01-29] MEDS: Carvedilol 6.25 MG TAB PO SCH ×2 (08:10→20:52)
[2020-01-29] MEDS: HumaLOG 300 UNITS/3 ML VIAL SC SCH ×3 (08:10→17:22)
[2020-01-29] MEDS: HumaLOG 300 UNITS/3 ML VIAL SC PRN ×3 (08:14→17:23)
[2020-01-29] MEDS: Ubidecarenone 50 MG CAP PO SCH (20:50)
[2020-01-29] MEDS: Atorvastatin Calcium 40 MG TAB PO SCH (20:53)
[2020-01-29] MEDS: Lantus 1000 UNITS/10 ML VIAL SC SCH (20:59)
[2020-01-29] MEDS: Acetaminophen 325 MG TAB PO PRN (23:49)
[2020-01-30] MEDS: predniSONE 20 MG TAB PO SCH (07:59)
[2020-01-30] MEDS: HumaLOG 300 UNITS/3 ML VIAL SC SCH ×3 (07:59→16:52)
[2020-01-30] MEDS: Carvedilol 6.25 MG TAB PO SCH ×2 (08:00→20:30)
[2020-01-30] MEDS: Allopurinol 100 MG TAB PO SCH (08:00)
[2020-01-30] MEDS: Minoxidil 2.5 MG TAB PO SCH (08:00)
[2020-01-30] MEDS: Famotidine 20 MG TAB PO SCH (08:00)
[2020-01-30] MEDS: Sodium Bicarbonate Tab 325 MG TAB PO SCH ×2 (08:00→20:29)
[2020-01-30] MEDS: Aspirin 81 mg Enteric Coated Tablet PO SCH (08:00)
[2020-01-30] MEDS: Gabapentin 400 MG CAP PO SCH ×3 (08:00→20:30)
[2020-01-30] MEDS: Docusate 100 MG CAP PO SCH ×2 (08:01→20:30)
[2020-01-30] MEDS: Polyethylene Glycol 3350 17 GM Packet PO SCH (08:01)
[2020-01-30] MEDS: Acetaminophen 325 MG TAB PO PRN (16:55)
[2020-01-30] MEDS: Ubidecarenone 50 MG CAP PO SCH (20:28)
[2020-01-30] MEDS: Atorvastatin Calcium 40 MG TAB PO SCH (20:29)
[2020-01-30] MEDS: Lantus 1000 UNITS/10 ML VIAL SC SCH (20:31)
[2020-01-30] MEDS: HumaLOG 300 UNITS/3 ML VIAL SC PRN (21:09)
[2020-01-31] MEDS: HumaLOG 300 UNITS/3 ML VIAL SC SCH ×3 (08:07→17:01)
[2020-01-31] MEDS: HumaLOG 300 UNITS/3 ML VIAL SC PRN ×2 (08:08→11:54)
[2020-01-31] MEDS: Gabapentin 400 MG CAP PO SCH ×3 (08:09→21:26)
[2020-01-31] MEDS: Sodium Bicarbonate Tab 325 MG TAB PO SCH ×2 (08:09→21:27)
[2020-01-31] MEDS: Famotidine 20 MG TAB PO SCH (08:09)
[2020-01-31] MEDS: Allopurinol 100 MG TAB PO SCH (08:09)
[2020-01-31] MEDS: Docusate 100 MG CAP PO SCH ×2 (08:09→21:27)
[2020-01-31] MEDS: Ergocalciferol 1.25 MG(50,000 UNITS) CAP PO SCH (08:09)
[2020-01-31] MEDS: Aspirin 81 mg Enteric Coated Tablet PO SCH (08:10)
[2020-01-31] MEDS: Polyethylene Glycol 3350 17 GM Packet PO SCH (08:10)
[2020-01-31] MEDS: Minoxidil 2.5 MG TAB PO SCH (08:10)
[2020-01-31] MEDS: Carvedilol 6.25 MG TAB PO SCH ×2 (08:10→21:27)
[2020-01-31] MEDS: Acetaminophen 325 MG TAB PO PRN ×2 (17:05→21:27)
[2020-01-31] MEDS: Lantus 1000 UNITS/10 ML VIAL SC SCH (21:26)
[2020-01-31] MEDS: Ubidecarenone 50 MG CAP PO SCH (21:26)
[2020-01-31] MEDS: Atorvastatin Calcium 40 MG TAB PO SCH (21:27)
[2020-02-01] MEDS: Acetaminophen 325 MG TAB PO PRN ×3 (08:17→20:05)
[2020-02-01] MEDS: Famotidine 20 MG TAB PO SCH (08:18)
[2020-02-01] MEDS: Allopurinol 100 MG TAB PO SCH (08:18)
[2020-02-01] MEDS: Gabapentin 400 MG CAP PO SCH ×3 (08:19→20:07)
[2020-02-01] MEDS: Aspirin 81 mg Enteric Coated Tablet PO SCH (08:19)
[2020-02-01] MEDS: Docusate 100 MG CAP PO SCH ×2 (08:19→20:07)
[2020-02-01] MEDS: Sodium Bicarbonate Tab 325 MG TAB PO SCH ×2 (08:19→20:05)
[2020-02-01] MEDS: Carvedilol 6.25 MG TAB PO SCH ×2 (08:19→20:05)
[2020-02-01] MEDS: Minoxidil 2.5 MG TAB PO SCH (08:19)
[2020-02-01] MEDS: Polyethylene Glycol 3350 17 GM Packet PO SCH (08:19)
[2020-02-01] MEDS: EPOETIN ALFA-EPBX (NON-ESRD) 10,000 UNIT/ML VIAL SC SCH (08:19)
[2020-02-01] MEDS: HumaLOG 300 UNITS/3 ML VIAL SC SCH ×5 (08:20→18:04)
[2020-02-01] MEDS: Atorvastatin Calcium 40 MG TAB PO SCH (20:05)
[2020-02-01] MEDS: Ubidecarenone 50 MG CAP PO SCH (20:06)
[2020-02-01] MEDS: Lantus 1000 UNITS/10 ML VIAL SC SCH (21:28)
[2020-02-02] MEDS: Acetaminophen 325 MG TAB PO PRN ×3 (02:11→21:54)
[2020-02-02] MEDS: Sodium Bicarbonate Tab 325 MG TAB PO SCH ×2 (08:02→21:53)
[2020-02-02] MEDS: Carvedilol 6.25 MG TAB PO SCH ×2 (08:03→21:53)
[2020-02-02] MEDS: Gabapentin 400 MG CAP PO SCH ×3 (08:03→22:00)
[2020-02-02] MEDS: Docusate 100 MG CAP PO SCH ×2 (08:03→21:54)
[2020-02-02] MEDS: Polyethylene Glycol 3350 17 GM Packet PO SCH (08:03)
[2020-02-02] MEDS: Famotidine 20 MG TAB PO SCH (08:03)
[2020-02-02] MEDS: Aspirin 81 mg Enteric Coated Tablet PO SCH (08:03)
[2020-02-02] MEDS: Allopurinol 100 MG TAB PO SCH (08:03)
[2020-02-02] MEDS: Minoxidil 2.5 MG TAB PO SCH (08:03)
[2020-02-02] MEDS: HumaLOG 300 UNITS/3 ML VIAL SC SCH ×3 (08:05→17:16)
[2020-02-02 18:11] LABS: Anion Gap 17 mmol/L (10-20); BUN (Urea Nitrogen) 32 mg/dL (8.4-25.7); Calc. Creatinine Clearance 51 mL/min (70-130); Calcium 9.6 mg/dL (7.8-10.44); Carbon Dioxide 24 mmol/L (23-31); Chloride 104 mmol/L (98-107); Estimated GFR-MDRD 41; Glucose 159 mg/dL (80-115); Potassium 5.5 mmol/L (3.5-5.1); Sodium 139 mmol/L (136-145)
[2020-02-02 18:12] LABS: Bilirubin Negative (Negative); Blood, Urine Negative (Negative); Clarity Clear (Clear); Glucose, Urine (Dipstick) Negative (Negative); Ketone, Urine Negative (Negative); Leukocyte Negative (Negative); Nitrite Negative (Negative); Protein, Urine (Dipstick) Negative (Neg-Trace); Specific Gravity, Urine 1.015 (1.005-1.030)
[2020-02-02 18:13] LABS: #Basophils 0.1 thou/uL (0.0-0.2); #Eosinphils 0.1 thou/uL (0.0-0.7); #Lymphocytes 1.6 thou/uL (1.20-3.40); #Monocytes 1.1 thou/uL (0.11-0.59); #Neutrophils 5.9 thou/uL (1.40-6.50); %Basophils 0.7 % (0.0-1.0); %Eosinophils 0.9 % (0.0-10.0); %Lymphocytes 18.5 % (21.0-51.0); %Monocytes 12.7 % (0.0-10.0); %Neutrophils 67.1 % (42.0-75.0); Hemoglobin 9.5 g/dL (14.0-18.0); Mean Corpuscular HGB CONC 31.3 g/dL (32.0-36.0); Mean Corpuscular Hemoglobin 26.4 pg (27.0-31.0); Mean Corpuscular Volume 84.3 fL (78.0-98.0); Mean Platelet Volume 6.3 fL (7.4-10.4); Platelet Count 366 thou/uL (130-400); Red Blood Cell (RBC) Count 3.59 mill/uL (4.70-6.10); White Blood Cell (WBC) Count 8.8 thou/uL (4.8-10.8)
[2020-02-02 18:22] LABS: Bacteria/HPF Rare-Few HPF (None Seen); RBC/HPF None Seen HPF (0-3); Squamous Epithelial 0-3 HPF (0-3); WBC/HPF 0-3 HPF (0-3)
[2020-02-02] MEDS: Lantus 1000 UNITS/10 ML VIAL SC SCH (21:52)
[2020-02-02] MEDS: Ubidecarenone 50 MG CAP PO SCH (21:53)
[2020-02-02] MEDS: Atorvastatin Calcium 40 MG TAB PO SCH (21:54)
[2020-02-03] MEDS: Gabapentin 400 MG CAP PO SCH ×3 (08:37→20:55)
[2020-02-03] MEDS: Allopurinol 100 MG TAB PO SCH (08:37)
[2020-02-03] MEDS: Minoxidil 2.5 MG TAB PO SCH (08:37)
[2020-02-03] MEDS: Famotidine 20 MG TAB PO SCH (08:37)
[2020-02-03] MEDS: Carvedilol 6.25 MG TAB PO SCH ×2 (08:38→20:55)
[2020-02-03] MEDS: Sodium Bicarbonate Tab 325 MG TAB PO SCH ×2 (08:38→20:54)
[2020-02-03] MEDS: Polyethylene Glycol 3350 17 GM Packet PO SCH (08:38)
[2020-02-03] MEDS: Aspirin 81 mg Enteric Coated Tablet PO SCH (08:38)
[2020-02-03] MEDS: HumaLOG 300 UNITS/3 ML VIAL SC SCH ×3 (08:39→17:01)
[2020-02-03] MEDS: Docusate 100 MG CAP PO SCH ×2 (08:40→20:55)
[2020-02-03] MEDS: Acetaminophen 325 MG TAB PO PRN ×2 (10:45→20:56)
[2020-02-03] MEDS ORDERED: Acetaminophen/Codeine 30-300mg Tablet PO SCH (14:30)
[2020-02-03] MEDS: Lantus 1000 UNITS/10 ML VIAL SC SCH (20:56)
[2020-02-03] MEDS: Atorvastatin Calcium 40 MG TAB PO SCH (20:56)
[2020-02-03] MEDS: Ubidecarenone 50 MG CAP PO SCH (20:56)
[2020-02-04] MEDS: Acetaminophen/Codeine 30-300mg Tablet PO PRN ×4 (00:14→23:47)
[2020-02-04] MEDS: Carvedilol 6.25 MG TAB PO SCH ×2 (08:39→20:41)
[2020-02-04] MEDS: Docusate 100 MG CAP PO SCH ×2 (08:39→20:41)
[2020-02-04] MEDS: Sodium Bicarbonate Tab 325 MG TAB PO SCH ×2 (08:39→20:42)
[2020-02-04] MEDS: Famotidine 20 MG TAB PO SCH (08:39)
[2020-02-04] MEDS: Allopurinol 100 MG TAB PO SCH (08:39)
[2020-02-04] MEDS: Minoxidil 2.5 MG TAB PO SCH (08:40)
[2020-02-04] MEDS: Aspirin 81 mg Enteric Coated Tablet PO SCH (08:40)
[2020-02-04] MEDS: Polyethylene Glycol 3350 17 GM Packet PO SCH (08:40)
[2020-02-04] MEDS: Gabapentin 400 MG CAP PO SCH ×3 (08:40→20:42)
[2020-02-04] MEDS: HumaLOG 300 UNITS/3 ML VIAL SC SCH ×3 (08:50→17:00)
[2020-02-04] MEDS: Acetaminophen 325 MG TAB PO PRN ×2 (12:23→20:42)
[2020-02-04] MEDS: Atorvastatin Calcium 40 MG TAB PO SCH (20:41)
[2020-02-04] MEDS: Ubidecarenone 50 MG CAP PO SCH (20:42)
[2020-02-04] MEDS: Lantus 1000 UNITS/10 ML VIAL SC SCH (20:43)
[2020-02-05] MEDS: Acetaminophen/Codeine 30-300mg Tablet PO PRN ×2 (08:41→18:38)
[2020-02-05] MEDS: Carvedilol 6.25 MG TAB PO SCH ×2 (08:42→21:13)
[2020-02-05] MEDS: Aspirin 81 mg Enteric Coated Tablet PO SCH (08:42)
[2020-02-05] MEDS: Minoxidil 2.5 MG TAB PO SCH (08:43)
[2020-02-05] MEDS: Gabapentin 400 MG CAP PO SCH ×3 (08:43→21:13)
[2020-02-05] MEDS: Polyethylene Glycol 3350 17 GM Packet PO SCH (08:43)
[2020-02-05] MEDS: Famotidine 20 MG TAB PO SCH (08:43)
[2020-02-05] MEDS: Docusate 100 MG CAP PO SCH ×2 (08:43→21:21)
[2020-02-05] MEDS: Sodium Bicarbonate Tab 325 MG TAB PO SCH ×2 (08:43→21:12)
[2020-02-05] MEDS: HumaLOG 300 UNITS/3 ML VIAL SC SCH ×3 (08:43→18:00)
[2020-02-05] MEDS: Allopurinol 100 MG TAB PO SCH (08:43)
[2020-02-05] MEDS: Acetaminophen 325 MG TAB PO PRN (14:48)
[2020-02-05 18:15] LABS: #Basophils 0.1 thou/uL (0.0-0.2); #Eosinphils 0.1 thou/uL (0.0-0.7); #Lymphocytes 1.3 thou/uL (1.20-3.40); #Monocytes 1.2 thou/uL (0.11-0.59); #Neutrophils 7.5 thou/uL (1.40-6.50); %Basophils 0.5 % (0.0-1.0); %Lymphocytes 12.6 % (21.0-51.0); %Monocytes 12.1 % (0.0-10.0); %Neutrophils 73.8 % (42.0-75.0); Mean Corpuscular HGB CONC 31.1 g/dL (32.0-36.0); Mean Corpuscular Hemoglobin 26.3 pg (27.0-31.0); Mean Corpuscular Volume 84.4 fL (78.0-98.0); Platelet Count 362 thou/uL (130-400); RBC Distribution Width 15.8 % (11.5-14.5); Red Blood Cell (RBC) Count 3.42 mill/uL (4.70-6.10); White Blood Cell (WBC) Count 10.1 thou/uL (4.8-10.8)
[2020-02-05 18:16] LABS: Bilirubin Negative (Negative); Blood, Urine Trace (Negative); Clarity Clear (Clear); Glucose, Urine (Dipstick) Negative (Negative); Ketone, Urine Negative (Negative); Leukocyte Negative (Negative); Nitrite Negative (Negative); Protein, Urine (Dipstick) 30 mg/dL (Neg-Trace); Specific Gravity, Urine 1.015 (1.005-1.030); Urobilinogen 0.2 mg/dL (Less than 2); pH, Urine 5.5 (5.0-9.0)
[2020-02-05 18:19] LABS: Urine Culture Reflex No No
[2020-02-05 18:23] LABS: Bacteria/HPF Rare-Few HPF (None Seen); RBC/HPF 0-3 HPF (0-3)
[2020-02-05 18:23] LABS: ALT (SGPT) 22 U/L (8-55); AST (SGOT) 17 U/L (5-34); Albumin 3.1 g/dL (3.4-4.8); Alkaline Phosphatase 242 U/L (40-110); Anion Gap 16 mmol/L (10-20); BUN (Urea Nitrogen) 38 mg/dL (8.4-25.7); Bilirubin, Total 0.5 mg/dL (0.2-1.2); Calc. Creatinine Clearance 36 mL/min (70-130); Carbon Dioxide 27 mmol/L (23-31); Chloride 102 mmol/L (98-107); Estimated GFR-MDRD 28; Globulin 4.6 g/dL (2.4-3.5); Glucose 165 mg/dL (80-115); Protein, Total 7.7 g/dL (5.8-8.1); Sodium 140 mmol/L (136-145)
--- NOTE | 2020-02-05 20:38 | RAD ---
XR Knee Rt 4 View STANDARD HISTORY: Right knee pain FINDINGS: No fracture or dislocation is identified. Degenerative changes are present. There is suggestion of a joint effusion.
--- NOTE | 2020-02-05 20:44 | RAD ---
XR Chest 1 View HISTORY: Fever COMPARISON: 01/03/2020 FINDINGS: The heart size is normal. The lungs are well expanded without focal areas of consolidation, pneumothorax or pleural effusions. IMPRESSION: No radiographic evidence of acute cardiopulmonary process.
[2020-02-05] MEDS: Atorvastatin Calcium 40 MG TAB PO SCH (21:12)
[2020-02-05] MEDS: Ubidecarenone 50 MG CAP PO SCH (21:13)
[2020-02-05] MEDS: Lantus 1000 UNITS/10 ML VIAL SC SCH (21:15)
--- NOTE | 2020-02-05 21:20 | CT ---
CT CHEST WITHOUT IV CONTRAST CT ABDOMEN WITHOUT IV CONTRAST CT PELVIS WITHOUT IV CONTRAST: Date: 02/05/2020 HISTORY: Fever. FINDINGS: Absence of IV contrast reduces the sensitivity of exam, particularly for evaluation of mediastinal, h ilar, and vascular structures. There are calcified granulomas in the mediastinum, hilar, and visualized portions of the liver and sp ladonna. There is bilateral gynecomastia. Calcified granulomas are also seen in the lungs. No pleural or pericardial effusions are present. No pneumothoraces, focal areas of consolidation, or noncalcified nodules are identified. There are dependent changes in the lung bases. No free air or free fluid is seen in the abdomen or pelvis. The small bowel loops are not abnormally dilated. A normal appearing appendix is present. No calcified gallstones are noted. No calculi seen in the kidneys, ureters, or the urinary bladder. N o hydroureteronephrosis is noted on either side. There are degenerative changes in the thoracolumbar spine. There are vascular calcifications without evidence of aneurysmal dilatation of the thoracoabdominal aorta. IMPRESSION: 1. Old granulomatous disease. No evidence of pneumonia. 2. No CT evidence of urinary tract calculi/obstruction or appendicitis. POS: [facility]
[2020-02-06] MEDS: Polyethylene Glycol 3350 17 GM Packet PO SCH (08:14)
[2020-02-06] MEDS: Sodium Bicarbonate Tab 325 MG TAB PO SCH ×2 (08:15→20:50)
[2020-02-06] MEDS: Aspirin 81 mg Enteric Coated Tablet PO SCH (08:15)
[2020-02-06] MEDS: Acetaminophen 325 MG TAB PO PRN ×3 (08:15→20:52)
[2020-02-06] MEDS: Docusate 100 MG CAP PO SCH ×2 (08:16→20:52)
[2020-02-06] MEDS: Carvedilol 6.25 MG TAB PO SCH ×2 (08:16→20:51)
[2020-02-06] MEDS: Allopurinol 100 MG TAB PO SCH (08:16)
[2020-02-06] MEDS: Famotidine 20 MG TAB PO SCH (08:16)
[2020-02-06] MEDS: Gabapentin 400 MG CAP PO SCH ×3 (08:16→20:52)
[2020-02-06] MEDS: HumaLOG 300 UNITS/3 ML VIAL SC SCH ×3 (08:16→17:20)
[2020-02-06] MEDS: Minoxidil 2.5 MG TAB PO SCH (08:16)
[2020-02-06] MEDS: HumaLOG 300 UNITS/3 ML VIAL SC PRN ×2 (12:28→17:20)
--- NOTE | 2020-02-06 14:17 | CT ---
CT HEAD WITHOUT IV CONTRAST COMPARISON: 01/03/2020 HISTORY: Elevated temperature TECHNIQUE: Axial CT imaging at 5 mm intervals from vertex through skull base without contrast FINDINGS: There is decreased attenuation in the periventricular white matter which is nonspecific but likely re flective of chronic small vessel ischemic changes. Remote lacunar infarction left thalamus is again seen. There is mild cerebral volume loss. The ventricular system is normal in size, shape, and position for the degree of sulcal atrophy. There is no evidence of an acute cortical infarction, hemorrhage, mass effect, or midline shift. Minimal mucosal thickening is seen in the posterior right ethmoidal air cell with trace mucosal thick ening seen left maxillary antrum. Mastoid air cells are clear. Osseous structures appear intact. CT head is stable when compared to prior study. IMPRESSION: 1. No acute intracranial abnormality demonstrated. 2. Chronic changes.
[2020-02-06] MEDS: Ubidecarenone 50 MG CAP PO SCH (20:51)
[2020-02-06] MEDS: Atorvastatin Calcium 40 MG TAB PO SCH (20:51)
[2020-02-06] MEDS: Lantus 1000 UNITS/10 ML VIAL SC SCH (20:52)
[2020-02-07] MEDS: HumaLOG 300 UNITS/3 ML VIAL SC SCH ×3 (08:24→16:49)
[2020-02-07] MEDS: Acetaminophen 325 MG TAB PO PRN (08:25)
[2020-02-07] MEDS: Minoxidil 2.5 MG TAB PO SCH (08:25)
[2020-02-07] MEDS: Ergocalciferol 1.25 MG(50,000 UNITS) CAP PO SCH (08:25)
[2020-02-07] MEDS: Carvedilol 6.25 MG TAB PO SCH ×2 (08:25→21:19)
[2020-02-07] MEDS: Gabapentin 400 MG CAP PO SCH ×3 (08:26→21:21)
[2020-02-07] MEDS: Docusate 100 MG CAP PO SCH ×2 (08:26→21:29)
[2020-02-07] MEDS: Allopurinol 100 MG TAB PO SCH (08:26)
[2020-02-07] MEDS: Aspirin 81 mg Enteric Coated Tablet PO SCH (08:26)
[2020-02-07] MEDS: Famotidine 20 MG TAB PO SCH (08:26)
[2020-02-07] MEDS: Sodium Bicarbonate Tab 325 MG TAB PO SCH ×2 (08:26→21:17)
[2020-02-07] MEDS: Polyethylene Glycol 3350 17 GM Packet PO SCH (08:27)
[2020-02-07] MEDS: Acetaminophen/Codeine 30-300mg Tablet PO PRN (18:07)
[2020-02-07] MEDS: Ubidecarenone 50 MG CAP PO SCH (21:15)
[2020-02-07] MEDS: Atorvastatin Calcium 40 MG TAB PO SCH (21:18)
[2020-02-07] MEDS: Lantus 1000 UNITS/10 ML VIAL SC SCH (21:19)
[2020-02-07] MEDS: HumaLOG 300 UNITS/3 ML VIAL SC PRN (21:20)
[2020-02-08] MEDS: Acetaminophen/Codeine 30-300mg Tablet PO PRN ×3 (00:03→14:54)
[2020-02-08] MEDS: EPOETIN ALFA-EPBX (NON-ESRD) 10,000 UNIT/ML VIAL SC SCH (08:04)
[2020-02-08] MEDS: Carvedilol 6.25 MG TAB PO SCH ×2 (08:05→20:26)
[2020-02-08] MEDS: HumaLOG 300 UNITS/3 ML VIAL SC SCH ×3 (08:05→17:08)
[2020-02-08] MEDS: Allopurinol 100 MG TAB PO SCH (08:06)
[2020-02-08] MEDS: Sodium Bicarbonate Tab 325 MG TAB PO SCH ×2 (08:06→20:27)
[2020-02-08] MEDS: Minoxidil 2.5 MG TAB PO SCH (08:06)
[2020-02-08] MEDS: Gabapentin 400 MG CAP PO SCH ×3 (08:06→20:27)
[2020-02-08] MEDS: Aspirin 81 mg Enteric Coated Tablet PO SCH (08:06)
[2020-02-08] MEDS: Docusate 100 MG CAP PO SCH ×2 (08:07→20:25)
[2020-02-08] MEDS: Famotidine 20 MG TAB PO SCH (08:07)
[2020-02-08] MEDS: Polyethylene Glycol 3350 17 GM Packet PO SCH (08:09)
[2020-02-08 13:44] VITALS: BMI 31.0
[2020-02-08] MEDS: Ubidecarenone 50 MG CAP PO SCH (20:24)
[2020-02-08] MEDS: Atorvastatin Calcium 40 MG TAB PO SCH (20:25)
[2020-02-08] MEDS: Lantus 1000 UNITS/10 ML VIAL SC SCH (20:31)
--- NOTE | 2020-02-08 21:30 | RAD ---
RIGHT ANKLE THREE VIEWS: 02/08/20 HISTORY: Right ankle pain. FINDINGS/IMPRESSION: The ankle mortise is maintained. No acute fracture or dislocation or bony destruction is seen. There is a tiny well corticated bony density inferior to the medial malleolus, likely due to remote trauma. There are posterior and plantar calcaneal spurs. POS: [facility]
[2020-02-09] MEDS: Acetaminophen/Codeine 30-300mg Tablet PO PRN (00:42)
[2020-02-09] MEDS: HumaLOG 300 UNITS/3 ML VIAL SC SCH ×3 (07:54→17:02)
[2020-02-09] MEDS: HumaLOG 300 UNITS/3 ML VIAL SC PRN ×4 (07:54→20:35)
[2020-02-09] MEDS: Polyethylene Glycol 3350 17 GM Packet PO SCH (09:01)
[2020-02-09] MEDS: Carvedilol 6.25 MG TAB PO SCH ×2 (09:01→20:26)
[2020-02-09] MEDS: Aspirin 81 mg Enteric Coated Tablet PO SCH (09:01)
[2020-02-09] MEDS: Sodium Bicarbonate Tab 325 MG TAB PO SCH ×2 (09:01→20:26)
[2020-02-09] MEDS: Docusate 100 MG CAP PO SCH ×2 (09:01→20:23)
[2020-02-09] MEDS: Minoxidil 2.5 MG TAB PO SCH (09:02)
[2020-02-09] MEDS: Allopurinol 100 MG TAB PO SCH (09:02)
[2020-02-09] MEDS: Famotidine 20 MG TAB PO SCH (09:02)
[2020-02-09] MEDS: Gabapentin 400 MG CAP PO SCH ×4 (09:02→20:27)
[2020-02-09] MEDS: Atorvastatin Calcium 40 MG TAB PO SCH (20:23)
[2020-02-09] MEDS: Ubidecarenone 50 MG CAP PO SCH (20:23)
[2020-02-09] MEDS: Lantus 1000 UNITS/10 ML VIAL SC SCH (20:31)
[2020-02-10] MEDS: Acetaminophen/Codeine 30-300mg Tablet PO PRN (03:17)
[2020-02-10] MEDS: Aspirin 81 mg Enteric Coated Tablet PO SCH (08:39)
[2020-02-10] MEDS: Sodium Bicarbonate Tab 325 MG TAB PO SCH ×2 (08:39→20:28)
[2020-02-10] MEDS: Minoxidil 2.5 MG TAB PO SCH (08:39)
[2020-02-10] MEDS: Polyethylene Glycol 3350 17 GM Packet PO SCH (08:39)
[2020-02-10] MEDS: Docusate 100 MG CAP PO SCH ×2 (08:40→20:28)
[2020-02-10] MEDS: Famotidine 20 MG TAB PO SCH (08:40)
[2020-02-10] MEDS: Carvedilol 6.25 MG TAB PO SCH ×2 (08:40→20:27)
[2020-02-10] MEDS: Allopurinol 100 MG TAB PO SCH (08:40)
[2020-02-10] MEDS: Gabapentin 400 MG CAP PO SCH ×4 (08:40→20:29)
[2020-02-10] MEDS: HumaLOG 300 UNITS/3 ML VIAL SC SCH ×3 (08:41→17:03)
[2020-02-10] MEDS: HumaLOG 300 UNITS/3 ML VIAL SC PRN ×4 (08:41→21:26)
[2020-02-10] MEDS: Ubidecarenone 50 MG CAP PO SCH (20:28)
[2020-02-10] MEDS: Atorvastatin Calcium 40 MG TAB PO SCH (20:28)
[2020-02-10] MEDS: Lantus 1000 UNITS/10 ML VIAL SC SCH (21:25)
[2020-02-11] MEDS: Polyethylene Glycol 3350 17 GM Packet PO SCH (08:14)
[2020-02-11] MEDS: Carvedilol 6.25 MG TAB PO SCH ×2 (08:15→20:20)
[2020-02-11] MEDS: Acetaminophen 325 MG TAB PO PRN (08:15)
[2020-02-11] MEDS: Aspirin 81 mg Enteric Coated Tablet PO SCH (08:15)
[2020-02-11] MEDS: Sodium Bicarbonate Tab 325 MG TAB PO SCH ×2 (08:15→20:20)
[2020-02-11] MEDS: Docusate 100 MG CAP PO SCH ×2 (08:16→20:20)
[2020-02-11] MEDS: Allopurinol 100 MG TAB PO SCH (08:16)
[2020-02-11] MEDS: Famotidine 20 MG TAB PO SCH (08:16)
[2020-02-11] MEDS: HumaLOG 300 UNITS/3 ML VIAL SC SCH ×3 (08:16→17:01)
[2020-02-11] MEDS: Minoxidil 2.5 MG TAB PO SCH (08:16)
[2020-02-11] MEDS: Gabapentin 400 MG CAP PO SCH ×3 (08:16→20:20)
[2020-02-11] MEDS: HumaLOG 300 UNITS/3 ML VIAL SC PRN ×3 (08:17→17:01)
[2020-02-11] MEDS: Ubidecarenone 50 MG CAP PO SCH (20:19)
[2020-02-11] MEDS: Atorvastatin Calcium 40 MG TAB PO SCH (20:20)
[2020-02-11] MEDS: Lantus 1000 UNITS/10 ML VIAL SC SCH (21:05)
[2020-02-12] MEDS: Aspirin 81 mg Enteric Coated Tablet PO SCH (08:24)
[2020-02-12] MEDS: Minoxidil 2.5 MG TAB PO SCH (08:24)
[2020-02-12] MEDS: Famotidine 20 MG TAB PO SCH (08:25)
[2020-02-12] MEDS: Allopurinol 100 MG TAB PO SCH (08:25)
[2020-02-12] MEDS: HumaLOG 300 UNITS/3 ML VIAL SC SCH ×3 (08:25→17:01)
[2020-02-12] MEDS: Sodium Bicarbonate Tab 325 MG TAB PO SCH ×2 (08:25→20:22)
[2020-02-12] MEDS: Carvedilol 6.25 MG TAB PO SCH ×2 (08:25→20:23)
[2020-02-12] MEDS: Gabapentin 400 MG CAP PO SCH ×3 (08:25→20:23)
[2020-02-12] MEDS: Polyethylene Glycol 3350 17 GM Packet PO SCH (08:26)
[2020-02-12] MEDS: Docusate 100 MG CAP PO SCH ×2 (08:26→20:22)
[2020-02-12] MEDS: HumaLOG 300 UNITS/3 ML VIAL SC PRN ×3 (11:55→20:34)
[2020-02-12] MEDS: Acetaminophen 325 MG TAB PO PRN (17:02)
[2020-02-12] MEDS: Ubidecarenone 50 MG CAP PO SCH (20:21)
[2020-02-12] MEDS: Atorvastatin Calcium 40 MG TAB PO SCH (20:24)
[2020-02-12] MEDS: Lantus 1000 UNITS/10 ML VIAL SC SCH (20:27)
[2020-02-13 06:41] VITALS: TEMP 97.4
[2020-02-13] MEDS: Gabapentin 400 MG CAP PO SCH (07:45)
[2020-02-13] MEDS: Aspirin 81 mg Enteric Coated Tablet PO SCH (07:46)
[2020-02-13] MEDS: Allopurinol 100 MG TAB PO SCH (07:46)
[2020-02-13] MEDS: Minoxidil 2.5 MG TAB PO SCH (07:46)
[2020-02-13] MEDS: Sodium Bicarbonate Tab 325 MG TAB PO SCH (07:46)
[2020-02-13] MEDS: Docusate 100 MG CAP PO SCH (07:46)
[2020-02-13] MEDS: Carvedilol 6.25 MG TAB PO SCH (07:47)
[2020-02-13] MEDS: HumaLOG 300 UNITS/3 ML VIAL SC SCH ×2 (07:47→11:56)
[2020-02-13] MEDS: Famotidine 20 MG TAB PO SCH (07:47)
[2020-02-13] MEDS: Polyethylene Glycol 3350 17 GM Packet PO SCH (07:48)
[2020-02-13 09:32] VITALS: BP 160/78
--- NOTE | 2020-02-14 01:09 | DIS ---
DATE OF ADMISSION: 01/15/2020 DATE OF DISCHARGE: 02/13/2020 DISCHARGING PHYSICIAN/PRIMARY CARE PHYSICIAN: Basilio Persaud MD DISCHARGE DISPOSITION: Back to home with the sister who is a primary caregiver. DISCHARGE FOLLOWUP: Follow up with primary care physician in 1 week. Follow up with orthopedic surgeon as needed. Follow up with edger machine setter, Dr. Dc Steele, in 2 to 4 weeks. Follow up with jewel hole driller in 2 to 4 weeks. DISCHARGE DIAGNOSES: 1. Physical deconditioning, improving. 2. Gouty arthritis, stable. 3. Uncontrolled diabetes type 2. 4. Chronic kidney disease stage 3. 5. Anemia of chronic disease, status post 2 units of PRBC here in [place] and 1 unit PRBC when patient was admitted in [facility]. 6. Fever of unknown cause, resolved. 7. Right knee pain. 8. Right ankle pain. DISCHARGE MEDICATIONS: 1. Sodium bicarb 650 b.i.d. 2. Coreg 12.5 b.i.d. 3. Lipitor 80 at bedtime. 4. Aspirin 81 mg daily. 5. Allopurinol 200 mg daily. 6. Coenzyme Q10 at 300 at bedtime. 7. Colace 100 b.i.d. 8. Epoetin 10,000 units subcu once a week. 9. Ergocalciferol 50,000 units once a week. 10. Pepcid 20 mg daily. 11. Gabapentin 400 mg t.i.d. 12. Glipizide XL 10 mg daily. 13. Lantus 20 units subcu. 14. Humalog 5 units before meals and at bedtime. 15. Minoxidil 5 mg daily. 16. MiraLAX 17 g p.o. daily. BRIEF HOSPITAL COURSE: Mr. Michel is a 64-year-old male with a history of mild developmental delay, who lives with his sister who is the primary caregiver. The patient was admitted to [facility] in [place] from January 03, 2020, to January 15, 2020. The patient had presented to the emergency room in [place] after falling from his walker in a sitting position and sustained right leg pain and right elbow pain and swelling. EMS was called and noted the patient to have an elevated blood pressure of 220/120. The patient was also noted to have a mildly elevated troponin and he was unable to move his elbow or knee. The patient did have an x-ray which showed no fracture, but swelling. The patient also had a [id number] UT type 2. He was started on IV antibiotic due to concern for septic arthritis due to low-grade fevers during hospitalization and patient had cultures of the elbow which confirmed gouty arthritis. The patient was discontinued these IV antibiotics and put on steroids, which he was able to tolerate and this helped the knee pain and elbow pain. Due to patient's chronic kidney disease, he was seen by Dr. Dc Steele, edger machine setter, and he had labile blood pressures. His blood pressure medications were adjusted. The patient was noted to have severe anemia with his hemoglobin of 6.7, and he was transfused 1 unit of PRBC. The patient's medications were adjusted during hospitalization and his condition improved. His hemoglobin on the day of discharge from [facility] in [place] was 8.2. Due to significant deconditioning, the patient was transferred to [place] for continued rehabilitation prior to discharge back to his home. During hospitalization here in [place], patient initially progressed very slowly with physical therapy. After about 3 days seen in [place], he was noted to have swelling again in his knee and he started complaining of significant knee pain. Patient's pain medications were adjusted. He was initially started on [place], which noted to make the patient very lethargic and confused and medication was switched to tramadol and this also caused severe confusion and lethargy. The patient had episodes of elevated temperature with a T-max of 100.6 on January 31. Due to this, the patient had a full workup with CBC, COVID testing, CMP, urine, and all this came back negative. The patient, on the , was noted to have hemoglobin of 6.8 and then on the , hemoglobin of 6.4 with severe lethargy, so the patient was transfused 2 units of PRBC and this improved to a hemoglobin of 9.5 with a hematocrit of 30.2. The patient was also started on a steroid Medrol Grant and allopurinol and this significantly improved his knee and patient was able to resume physical therapy. During hospitalization again, he started complaining of more knee pain and he started having episodes of fevers again with a T-max of 101.4 on February 04, so patient had another workup and blood cultures, chest x-ray, abdominal x-ray, CT of the chest and abdomen and everything came back negative. Once again, repeat x-ray of the knee was done which showed no septic arthritis. The patient's uric acid was elevated again and he was started on another Medrol Grant for 6 days. Patient's condition improved and he was referred to orthopedic surgeon, Dr. Mcmahan, who was able to see him and assist with patient's management. On February 07, the patient had a steroid knee injection to the right knee and this improved significantly. The patient had no more episodes of fevers and he was able to participate in physical therapy with a rolling walker. His condition improved and on February 12, the patient was discharged home with [facility] with family members and he was given discharge instructions and followup instructions with primary care physician and specialists. The patient was happy about care and was happy to be going home. Vital signs on day of discharge; temperature 97.4, pulse 79, respirations 18, O2 saturation 97% on room air, blood pressure 160/78. Job ID: [id number]
== END 2020-02-13 13:40 | disposition home health service (06) | DRG 947 ==
LOC: MADMS 15:23
PROVIDERS: ADMIT Family Medicine; ATTEND Family Medicine
PROC: 30233N1 Transfusion of Nonautologous Red Blood Cells into Peripheral Vein, Percutaneous Approach (ICD-10-PCS; principal; 2020-01-24)
DX: R53.81 Other malaise (principal); I21.A1 Myocardial infarction type 2; N17.9 Acute kidney failure, unspecified; N18.9 Chronic kidney disease, unspecified; Z20.828 Contact with and (suspected) exposure to other viral communicable diseases; I16.0 Hypertensive urgency; E11.22 Type 2 diabetes mellitus with diabetic chronic kidney disease; N18.3 Chronic kidney disease, stage 3 (moderate); E78.5 Hyperlipidemia, unspecified; I12.9 Hypertensive chronic kidney disease with stage 1 through stage 4 chronic kidney disease, or unspecified chronic kidney disease; D63.1 Anemia in chronic kidney disease; R62.50 Unspecified lack of expected normal physiological development in childhood; Z86.73 Personal history of transient ischemic attack (TIA), and cerebral infarction without residual deficits; Z79.4 Long term (current) use of insulin
CPT/HCPCS: 36415; 36416; 36430; 70450; 71045; 71250; 74176; 80048; 80053; 81001; 83605; 84550; 85025; 86850; 86900; 86901; 87040; 87149; 87635; J1815; J7512; P9016; Q5106; U0003

== ENCOUNTER 2020-02-27 12:19 | Inpatient (IN) | payer MEDICARE, OTHER ==
[2020-02-27 13:21] LABS: #Basophils 0.1 thou/uL (0.0-0.2); #Lymphocytes 1.6 thou/uL (1.20-3.40); #Monocytes 0.9 thou/uL (0.11-0.59); #Neutrophils 15.8 thou/uL (1.40-6.50); %Basophils 0.7 % (0.0-1.0); %Eosinophils 0.1 % (0.0-10.0); %Lymphocytes 8.7 % (21.0-51.0); %Monocytes 4.9 % (0.0-10.0); %Neutrophils 85.6 % (42.0-75.0); Hemoglobin 10.9 g/dL (14.0-18.0); Mean Corpuscular HGB CONC 31.7 g/dL (32.0-36.0); Mean Corpuscular Hemoglobin 26.4 pg (27.0-31.0); Mean Corpuscular Volume 83.2 fL (78.0-98.0); Mean Platelet Volume 7.8 fL (7.4-10.4); Platelet Count 153 thou/uL (130-400); RBC Distribution Width 17.4 % (11.5-14.5); Red Blood Cell (RBC) Count 4.14 mill/uL (4.70-6.10); White Blood Cell (WBC) Count 18.5 thou/uL (4.8-10.8)
[2020-02-27] MEDS ORDERED: Sodium Chloride 0.9% 1,000 ML IV SCH (13:30)
[2020-02-27 13:31] LABS: ALT (SGPT) 13 U/L (8-55); AST (SGOT) 9 U/L (5-34); Albumin 3.7 g/dL (3.4-4.8); Alkaline Phosphatase 134 U/L (40-110); Anion Gap 16 mmol/L (10-20); BUN (Urea Nitrogen) 32 mg/dL (8.4-25.7); Bilirubin, Total 1.4 mg/dL (0.2-1.2); Calc. Creatinine Clearance 0 mL/min (70-130); Carbon Dioxide 24 mmol/L (23-31); Chloride 98 mmol/L (98-107); Estimated GFR-MDRD 34; Globulin 4.4 g/dL (2.4-3.5); Glucose 281 mg/dL (80-115); Potassium 5.2 mmol/L (3.5-5.1); Protein, Total 8.1 g/dL (5.8-8.1); Sodium 133 mmol/L (136-145)
[2020-02-27] MEDS ORDERED: Ondansetron ODT 4 MG TAB PO PRN (13:40)
[2020-02-27] MEDS ORDERED: EPOETIN ALFA-EPBX (NON-ESRD) 10,000 UNIT/ML VIAL SC SCH (14:15)
[2020-02-27 14:29] VITALS: BMI 27.6
[2020-02-27] MEDS: Acetaminophen 325 MG TAB PO PRN (14:47)
[2020-02-27] MEDS: Gabapentin 400 MG CAP PO SCH ×2 (14:47→20:44)
[2020-02-27 14:56] LABS: Bilirubin Negative (Negative); Blood, Urine Large (Negative); Clarity Cloudy (Clear); Glucose, Urine (Dipstick) Negative (Negative); Ketone, Urine Negative (Negative); Leukocyte Large (Negative); Nitrite Negative (Negative); Protein, Urine (Dipstick) > or equal to 300 mg/dL (Neg-Trace); Urobilinogen 0.2 mg/dL (Less than 2)
[2020-02-27 15:08] LABS: Bacteria/HPF 2+ HPF (None Seen); RBC/HPF Greater than 50 HPF (0-3); Squamous Epithelial None Seen HPF (0-3); WBC/HPF Greater Than 50 HPF (0-3)
[2020-02-27] MEDS: cefTRIAXone\\ROCEPHIN 2 GM in Sodium Chloride 0.9% 100 ML IVPB SCH (15:40)
[2020-02-27] MEDS: Sodium Chloride 0.9% 1,000 ML IV SCH ×2 (17:00→23:33)
[2020-02-27] MEDS ORDERED: Acetaminophen 325 MG TAB PO SCH (17:00)
[2020-02-27 17:15] LABS: Lactic Acid 2.4 mmol/L (0.5-2.2)
[2020-02-27] MEDS ORDERED: Vancomycin HCl 1.25 GM in Sodium Chloride 0.9% 250 ML 250 ML IVPB SCH (18:00)
[2020-02-27] MEDS: Vancomycin HCl 750 MG in Sodium Chloride 0.9% 250 ML 250 ML IVPB SCH (18:01)
[2020-02-27] MEDS ORDERED: Vancomycin HCl 500 MG in Sodium Chloride 0.9% 100 ML IVPB SCH (19:00)
[2020-02-27] MEDS: Lantus 1000 UNITS/10 ML VIAL SC SCH (20:36)
[2020-02-27] MEDS: Carvedilol 6.25 MG TAB PO SCH (20:45)
[2020-02-27] MEDS: Atorvastatin Calcium 40 MG TAB PO SCH (20:46)
[2020-02-27] MEDS: Ubidecarenone 50 MG CAP PO SCH (20:48)
[2020-02-27] MEDS: Sodium Bicarbonate Tab 325 MG TAB PO SCH (20:49)
[2020-02-27] MEDS: Famotidine 20 MG TAB PO SCH (20:49)
[2020-02-27] MEDS: Vancomycin HCl 500 MG in Sodium Chloride 0.9% 100 ML IVPB SCH (20:57)
--- NOTE | 2020-02-27 23:05 | HP ---
PRIMARY CARE PHYSICIAN: Basilio Persaud MD CHIEF COMPLIANT: The patient admitted to inpatient service in [facility] due to urinary tract infection, confusion, and generalized weakness. HISTORY OF PRESENT ILLNESS: Mr. Michel is a 64-year-old male , who was recently discharged from acute rehabilitation at [facility] on February 13, 2020. The patient was admitted for physical deconditioning from January 15, 2020 till February 12 and he was discharged home with his family members. The patient had a telemedicine visit with his sister, Ms. Eleanor Michel, who is his primary caregiver last week and was improving with Home Health. The patient presented to my office with his sister today due to confusion, generalized weakness, and strong smelling urine. Sister stated the patient yesterday was in his normal state of health, but today he started having significant confusion. She stated yesterday she had noted his urine was strong smelling, but today he was lethargic. He was confused and he had decreased appetite, so she decided to bring him in. Upon evaluation of the patient in my office, he had a low-grade temperature of 99.6, heart rate of 122, pulse 96, blood pressure 102/50, respiration 20. The patient was alert, very lethargic, and confused. The patient denies any chest pain and decision was made to directly admit him to the floor. He was only able to give very, very little urine with strong smelling and UA in my office was positive for large blood and large leukocytes. Subsequently, the patient was directly admitted and stat labs, CBC, CMP, blood cultures, urine culture, lactic acid, and COVID-19 test ordered. The patient was started on IV fluid normal saline at 150 mL/h. Urine was ordered via straight cath. The patient was started on IV Rocephin 2 g daily. PAST MEDICAL HISTORY: Hypertension, chronic kidney disease stage 3, developmental delay, hyperlipidemia, uncontrolled diabetes type 2, previous CVA, gout, right knee and right ankle pain. PAST SURGICAL HISTORY: None. FAMILY HISTORY: Significant for congestive heart failure and diabetes type 2. SOCIAL HISTORY: The patient lives with his sister, Charlene Michel, who is his power of insurance defense attorney. Denies tobacco, alcohol or illicit drug use. The patient is alert. ALLERGIES: BACTRIM. REVIEW OF SYSTEMS: Unable to obtain a good review of systems due to patient's acute confusion but per sister, the patient had not had any recent falls. The patient has had decreased appetite. The patient has had confusion in general. Genitourinary, patient has had incontinent and strong smelly urine. MEDICATIONS: 1. Allopurinol 100 daily. 2. Aspirin 81 mg daily. 3. Atorvastatin 80 daily. 4. Vitamin D3 of 50,000 units once a week. 5. Coreg 12.5 b.i.d. 6. Zyrtec 10 daily. 7. Plavix 75 daily. 8. CoQ10 of 300 daily. 9. [place]-3 of 1000 daily. 10. Gabapentin 400 t.i.d. 11. Glipizide 10 b.i.d. 12. Minoxidil 2.5 once a day. 13. Pantoprazole 40 daily. 14. Sodium bicarb 650 twice a day. 15. Lantus 8 units b.i.d. 16. Retacrit 10,000 unit mL injection once a week. 17. MiraLAX 1 pack with fluid daily. PHYSICAL EXAMINATION: VITAL SIGNS: Temperature 100.1, pulse 123, respirations 16, O2 saturation 96 on room air, and blood pressure 125/79. GENERAL: The patient is alert, awake, oriented x0. The patient is very lethargic. HEENT: Normocephalic, atraumatic. PERRL. No sclerae icterus. Oral mucous membrane is dry. Poor dentition. NECK: Supple. Trachea midline. No LAD. CHEST: S1, S2. No murmurs. LUNGS: Clear to auscultation bilaterally. ABDOMEN: Positive bowel sounds. Nontender. Nondistended. MUSCULOSKELETAL: Able to move all extremities. No edema noted. NEUROLOGICAL: The patient is currently confused. ASSESSMENT: 1. Urosepsis. 2. Physical deconditioning. 3. Uncontrolled diabetes. 4. Anemia of chronic disease. 5. Chronic kidney disease, stage 3. 6. Gout. 7. Hypertension. 8. Mild developmental delay. PLAN: The patient is a 64-year-old male admitted to the medical floor for urinary tract infection, physical deconditioning, and urosepsis. We will continue the patient on IV fluids 150 mL/h. We will do these gently due to patient's chronic kidney disease and to avoid fluid overload, we will start the patient on Tylenol q.4 hours p.r.n. We will start the patient on IV Rocephin and start IV vancomycin. We will place the patient on Accu-Cheks before meals and bedtime. We will place the patient on 1800carb consistent diet. We will monitor the patient closely. We will resume home medications. Per sister and family, patient to currently stay in [facility]. Per sister, they are going to have a family meeting, but currently patient to remain a full code. Job ID: [id number] MTDD
[2020-02-28 05:20] LABS: Anion Gap 13 mmol/L (10-20); BUN (Urea Nitrogen) 30 mg/dL (8.4-25.7); Calc. Creatinine Clearance 40 mL/min (70-130); Calcium 8.7 mg/dL (7.8-10.44); Carbon Dioxide 23 mmol/L (23-31); Chloride 104 mmol/L (98-107); Estimated GFR-MDRD 39; Glucose 256 mg/dL (80-115); Potassium 4.5 mmol/L (3.5-5.1); Sodium 135 mmol/L (136-145)
[2020-02-28 05:32] LABS: #Basophils 0.1 thou/uL (0.0-0.2); #Lymphocytes 1.3 thou/uL (1.20-3.40); #Monocytes 0.7 thou/uL (0.11-0.59); #Neutrophils 12.3 thou/uL (1.40-6.50); %Basophils 0.4 % (0.0-1.0); %Eosinophils 0.3 % (0.0-10.0); %Lymphocytes 9.2 % (21.0-51.0); %Monocytes 5.1 % (0.0-10.0); %Neutrophils 85.1 % (42.0-75.0); Hemoglobin 8.6 g/dL (14.0-18.0); Mean Corpuscular HGB CONC 32.7 g/dL (32.0-36.0); Mean Corpuscular Hemoglobin 26.7 pg (27.0-31.0); Mean Corpuscular Volume 81.6 fL (78.0-98.0); Mean Platelet Volume 7.7 fL (7.4-10.4); Platelet Count 107 thou/uL (130-400); RBC Distribution Width 16.5 % (11.5-14.5); Red Blood Cell (RBC) Count 3.21 mill/uL (4.70-6.10); White Blood Cell (WBC) Count 14.5 thou/uL (4.8-10.8)
[2020-02-28] MEDS: Sodium Chloride 0.9% 1,000 ML IV SCH ×4 (05:52→23:12)
[2020-02-28 05:53] LABS: Anisocytosis SLIGHT = 6-15 cells (100X) (0-5/hpf); Poikilocytosis SLIGHT = 6-15 cells (100X) (0-5/hpf)
[2020-02-28 05:54] LABS: Platelet Morphology Comment Appears Decreased
[2020-02-28] MEDS: Minoxidil 2.5 MG TAB PO SCH (08:08)
[2020-02-28] MEDS: Carvedilol 6.25 MG TAB PO SCH ×2 (08:08→20:20)
[2020-02-28] MEDS: Sodium Bicarbonate Tab 325 MG TAB PO SCH ×2 (08:09→20:18)
[2020-02-28] MEDS: Polyethylene Glycol 3350 17 GM Packet PO SCH (08:09)
[2020-02-28] MEDS: Loratadine 10 MG TAB PO SCH (08:09)
[2020-02-28] MEDS: Fish Oil 1,000 MG CAP PO SCH (08:09)
[2020-02-28] MEDS: Gabapentin 400 MG CAP PO SCH ×3 (08:09→20:19)
[2020-02-28] MEDS: Famotidine 20 MG TAB PO SCH ×2 (08:09→20:19)
[2020-02-28] MEDS: Allopurinol 100 MG TAB PO SCH (08:09)
[2020-02-28] MEDS: glipiZIDE 5 MG TAB PO SCH ×2 (08:09→16:56)
[2020-02-28] MEDS: Aspirin 81 mg Enteric Coated Tablet PO SCH (08:09)
[2020-02-28] MEDS: Lantus 1000 UNITS/10 ML VIAL SC SCH ×2 (08:10→20:20)
[2020-02-28] MEDS: Clopidogrel Bisulfate 75 MG TAB PO SCH (08:10)
[2020-02-28] MEDS ORDERED: EPOETIN ALFA-EPBX (NON-ESRD) 10,000 UNIT/ML VIAL SC SCH (09:00)
[2020-02-28 12:29] LABS: SARS-CoV-2 MS2 Positive; SARS-CoV-2 N Gene Negative; SARS-CoV-2 S Gene Negative; SARS-CoV-2 by NAA Not Detected (NotDetected); SARS-CoV-2 orf1ab Negative
[2020-02-28] MEDS: cefTRIAXone\\ROCEPHIN 2 GM in Sodium Chloride 0.9% 100 ML IVPB SCH (15:17)
[2020-02-28] MEDS: Vancomycin HCl 750 MG in Sodium Chloride 0.9% 250 ML 250 ML IVPB SCH (17:54)
[2020-02-28] MEDS: Ubidecarenone 50 MG CAP PO SCH (20:17)
[2020-02-28] MEDS: Atorvastatin Calcium 40 MG TAB PO SCH (20:19)
[2020-02-28] MEDS: Vancomycin HCl 500 MG in Sodium Chloride 0.9% 100 ML IVPB SCH (20:22)
[2020-02-29] MEDS: Acetaminophen 325 MG TAB PO PRN ×2 (00:18→14:30)
[2020-02-29] MEDS: Sodium Chloride 0.9% 1,000 ML IV SCH (06:18)
[2020-02-29] MEDS: glipiZIDE 5 MG TAB PO SCH ×2 (07:35→16:50)
[2020-02-29] MEDS: Polyethylene Glycol 3350 17 GM Packet PO SCH (08:22)
[2020-02-29] MEDS: Sodium Bicarbonate Tab 325 MG TAB PO SCH ×2 (08:24→20:41)
[2020-02-29] MEDS: Allopurinol 100 MG TAB PO SCH (08:25)
[2020-02-29] MEDS: Minoxidil 2.5 MG TAB PO SCH (08:25)
[2020-02-29] MEDS: Loratadine 10 MG TAB PO SCH (08:25)
[2020-02-29] MEDS: Carvedilol 6.25 MG TAB PO SCH ×2 (08:25→20:40)
[2020-02-29] MEDS: Famotidine 20 MG TAB PO SCH ×2 (08:25→20:41)
[2020-02-29] MEDS: Gabapentin 400 MG CAP PO SCH ×3 (08:25→20:40)
[2020-02-29] MEDS: Clopidogrel Bisulfate 75 MG TAB PO SCH (08:26)
[2020-02-29] MEDS: Fish Oil 1,000 MG CAP PO SCH (08:26)
[2020-02-29] MEDS: Aspirin 81 mg Enteric Coated Tablet PO SCH (08:26)
[2020-02-29] MEDS: Lantus 1000 UNITS/10 ML VIAL SC SCH (08:26)
[2020-02-29] MEDS: cefTRIAXone\\ROCEPHIN 2 GM in Sodium Chloride 0.9% 100 ML IVPB SCH (14:31)
[2020-02-29] MEDS ORDERED: Acetaminophen/Codeine 30-300mg Tablet PO PRN (16:33)
[2020-02-29 17:03] LABS: Vancomycin, Trough 13.7 ug/mL
[2020-02-29] MEDS: Vancomycin HCl 750 MG in Sodium Chloride 0.9% 250 ML 250 ML IVPB SCH (18:10)
[2020-02-29] MEDS: Vancomycin HCl 500 MG in Sodium Chloride 0.9% 100 ML IVPB SCH (20:39)
[2020-02-29] MEDS: Atorvastatin Calcium 40 MG TAB PO SCH (20:40)
[2020-02-29] MEDS: Ubidecarenone 50 MG CAP PO SCH (20:41)
[2020-03-01] MEDS: Lantus 1000 UNITS/10 ML VIAL SC SCH (00:40)
[2020-03-01 05:44] LABS: Anion Gap 13 mmol/L (10-20); BUN (Urea Nitrogen) 15 mg/dL (8.4-25.7); Calc. Creatinine Clearance 56 mL/min (70-130); Calcium 8.7 mg/dL (7.8-10.44); Carbon Dioxide 22 mmol/L (23-31); Chloride 111 mmol/L (98-107); Estimated GFR-MDRD 57; Potassium 4.1 mmol/L (3.5-5.1); Sodium 142 mmol/L (136-145)
[2020-03-01 05:50] LABS: #Eosinphils 0.1 thou/uL (0.0-0.7); #Lymphocytes 1.2 thou/uL (1.20-3.40); #Monocytes 0.6 thou/uL (0.11-0.59); #Neutrophils 4.2 thou/uL (1.40-6.50); %Basophils 0.6 % (0.0-1.0); %Eosinophils 1.4 % (0.0-10.0); %Lymphocytes 19.4 % (21.0-51.0); %Monocytes 10.2 % (0.0-10.0); %Neutrophils 68.4 % (42.0-75.0); Anisocytosis SLIGHT = 6-15 cells (100X) (0-5/hpf); Hemoglobin 7.7 g/dL (14.0-18.0); Hypochromia SLIGHT = 6-15 cells (100X) (0-5/hpf); MDiff Complete? YES; Mean Corpuscular HGB CONC 32.3 g/dL (32.0-36.0); Mean Corpuscular Hemoglobin 26.4 pg (27.0-31.0); Mean Corpuscular Volume 81.6 fL (78.0-98.0); Mean Platelet Volume 6.9 fL (7.4-10.4); Platelet Count 114 thou/uL (130-400); Platelet Morphology Comment Appears Adequate; RBC Distribution Width 16.9 % (11.5-14.5); Red Blood Cell (RBC) Count 2.93 mill/uL (4.70-6.10); White Blood Cell (WBC) Count 6.1 thou/uL (4.8-10.8)
[2020-03-01 06:04] LABS: Glucose 54 mg/dL (80-115)
[2020-03-01] MEDS: Polyethylene Glycol 3350 17 GM Packet PO SCH (08:15)
[2020-03-01] MEDS: Fish Oil 1,000 MG CAP PO SCH (08:15)
[2020-03-01] MEDS: Sodium Bicarbonate Tab 325 MG TAB PO SCH (08:16)
[2020-03-01] MEDS: Carvedilol 6.25 MG TAB PO SCH (08:16)
[2020-03-01] MEDS: Clopidogrel Bisulfate 75 MG TAB PO SCH (08:16)
[2020-03-01] MEDS: Allopurinol 100 MG TAB PO SCH (08:16)
[2020-03-01] MEDS: Famotidine 20 MG TAB PO SCH (08:16)
[2020-03-01] MEDS: Minoxidil 2.5 MG TAB PO SCH (08:16)
[2020-03-01] MEDS: Gabapentin 400 MG CAP PO SCH ×2 (08:16→14:44)
[2020-03-01] MEDS: Aspirin 81 mg Enteric Coated Tablet PO SCH (08:16)
[2020-03-01] MEDS: Loratadine 10 MG TAB PO SCH (08:16)
[2020-03-01] MEDS ORDERED: Lantus 1000 UNITS/10 ML VIAL SC SCH (09:00)
[2020-03-01 12:30] VITALS: BP 183/92; TEMP 98.5
[2020-03-01] MEDS: cefTRIAXone\\ROCEPHIN 2 GM in Sodium Chloride 0.9% 100 ML IVPB SCH (14:45)
[2020-03-02] MEDS ORDERED: glipiZIDE 5 MG TAB PO SCH (09:00)
[2020-03-03] MEDS ORDERED: Ergocalciferol 1.25 MG(50,000 UNITS) CAP PO SCH (09:00)
--- NOTE | 2020-03-04 07:22 | PQF ---
CLINICAL DOCUMENTATION CLARIFICATION FORM: Dear : Basilio Persaud Date / Time: 03/04/2020 Please exercise your independent, professional judgment in responding to the clarification form. Clinical indicators are provided on the bottom of this form for your review Please check appropriate box(es): [ x ] Sepsis [ ] Localized infection without sepsis [ ] Other diagnosis [ ] Unable to determine In addition, please specify: Present on Admission (POA): [x ] Yes [ ] No [ ] Unable to determine To be completed by CDI/Coding staff for physician review: Present Clinical Indicators - Signs / Symptoms / Labs Results and Location in Medical Record [ x ] Patient admitted to the medical floor for urinary tract infection, physical deconditioning and urosepsis. Will start the patient on IV Rocephin and IV vancomycin H&P [ x ] WBC is 18.5 on 02/26 and 14.5 on 02/27 Laboratory [ x ] Lactic acid os 2.6 on 02/26 Laboratory [ x ] Temperature is 101.8 on 02/26. Pulse is 132 on 02/26 Vital signs Present Risk Factors Results and Location in Medical Record [ x ] UTI, diabetes, CKD H&P Present Treatments Results and Location in Medical Record [ x ] IV Rocephin 02/26 to 03/01 Medications [ x ] IV Vancomycin 02/26 to 03/01 Medications [ x ] IV fluids Medications CDS/Water Manager Signature: [email or web address] Phone #: Date/ Time: 03/04/20 This is a permanent part of the Medical Record [facility] [place] [facility]
[2020-03-05] MEDS ORDERED: Ergocalciferol 1.25 MG(50,000 UNITS) CAP PO SCH (09:00)
== END 2020-03-01 15:18 | disposition home or self-care (01) | DRG 872 ==
LOC: MADMS 12:19
PROVIDERS: ADMIT Family Medicine; ATTEND Family Medicine
DX: A41.9 Sepsis, unspecified organism (principal); N39.0 Urinary tract infection, site not specified; Z20.828 Contact with and (suspected) exposure to other viral communicable diseases; I12.9 Hypertensive chronic kidney disease with stage 1 through stage 4 chronic kidney disease, or unspecified chronic kidney disease; N18.3 Chronic kidney disease, stage 3 (moderate); E11.22 Type 2 diabetes mellitus with diabetic chronic kidney disease; E78.5 Hyperlipidemia, unspecified; M10.9 Gout, unspecified; R53.81 Other malaise; D63.1 Anemia in chronic kidney disease; Z86.73 Personal history of transient ischemic attack (TIA), and cerebral infarction without residual deficits; Z88.1 Allergy status to other antibiotic agents; Z79.82 Long term (current) use of aspirin; Z79.02 Long term (current) use of antithrombotics/antiplatelets; Z79.4 Long term (current) use of insulin
CPT/HCPCS: 36415; 36416; 80048; 80053; 80202; 81001; 83036; 83605; 84443; 85025; 87040; 87077; 87086; 87186; 87635; J0696; J1815; J3370; J3490; J7050; Q5106; U0003

== ENCOUNTER 2020-03-01 15:25 | Inpatient (IN) | payer MEDICARE, OTHER ==
[2020-03-01] MEDS ORDERED: Ondansetron ODT 4 MG TAB PO PRN (17:12)
[2020-03-01] MEDS ORDERED: Vancomycin HCl 750 MG in Sodium Chloride 0.9% 250 ML 250 ML IVPB SCH (18:00)
[2020-03-01] MEDS ORDERED: Vancomycin HCl 500 MG in Sodium Chloride 0.9% 100 ML IVPB SCH (19:00)
[2020-03-01] MEDS: Gabapentin 400 MG CAP PO SCH (21:00)
[2020-03-01] MEDS: Carvedilol 12.5 MG TAB PO SCH (21:00)
[2020-03-01] MEDS: Lantus 1000 UNITS/10 ML VIAL SC SCH (21:01)
[2020-03-01] MEDS: Sodium Bicarbonate Tab 325 MG TAB PO SCH (21:02)
[2020-03-01] MEDS: Acetaminophen 325 MG TAB PO PRN (21:02)
[2020-03-02] MEDS ORDERED: Dextrose 5% in Water 1,000 ML IV PRN (03:42)
[2020-03-02] MEDS ORDERED: Dextrose 50% Abboject 50 ML SYRINGE IVP PRN (03:42)
[2020-03-02] MEDS ORDERED: HumaLOG 300 UNITS/3 ML VIAL SC SCH (03:45)
[2020-03-02] MEDS: Acetaminophen 325 MG TAB PO PRN ×3 (04:35→16:48)
[2020-03-02] MEDS ORDERED: glipiZIDE 5 MG TAB PO SCH (07:30)
[2020-03-02] MEDS: Aspirin 81 mg Enteric Coated Tablet PO SCH (07:57)
[2020-03-02] MEDS: Polyethylene Glycol 3350 17 GM Packet PO SCH (07:57)
[2020-03-02] MEDS: Allopurinol 100 MG TAB PO SCH (07:57)
[2020-03-02] MEDS: Fish Oil 1,000 MG CAP PO SCH (07:57)
[2020-03-02] MEDS: Gabapentin 400 MG CAP PO SCH ×3 (07:57→20:34)
[2020-03-02] MEDS: Carvedilol 12.5 MG TAB PO SCH ×2 (07:57→20:33)
[2020-03-02] MEDS: Minoxidil 2.5 MG TAB PO SCH (07:58)
[2020-03-02] MEDS: Loratadine 10 MG TAB PO SCH (07:58)
[2020-03-02] MEDS: Clopidogrel Bisulfate 75 MG TAB PO SCH (07:59)
[2020-03-02] MEDS: Sodium Bicarbonate Tab 325 MG TAB PO SCH ×2 (07:59→20:33)
[2020-03-02] MEDS: Lantus 1000 UNITS/10 ML VIAL SC SCH ×2 (07:59→20:34)
[2020-03-02] MEDS: HumaLOG 300 UNITS/3 ML VIAL SC PRN ×3 (07:59→16:43)
[2020-03-02] MEDS ORDERED: [UNRECOGNIZED DRUG - OTHER] IV SCH (09:00)
[2020-03-02] MEDS ORDERED: VANCOMYCIN HCL IN DEXTROSE 5% IV SCH (09:00)
[2020-03-02] MEDS: glipiZIDE 5 MG TAB PO SCH (16:43)
[2020-03-02] MEDS: Ubidecarenone 50 MG CAP PO SCH (16:43)
[2020-03-02 17:14] LABS: Vancomycin, Trough 16.5 ug/mL
[2020-03-02] MEDS ORDERED: Vancomycin HCl 750 MG VIAL ONE (19:56)
[2020-03-02] MEDS: Nitrofurantoin Monohyd/M-Cryst 100 MG CAP PO SCH (20:33)
[2020-03-02] MEDS ORDERED: Vancomycin HCl 500 MG in Sodium Chloride 0.9% 100 ML IVPB SCH (21:00)
[2020-03-02] MEDS ORDERED: Vancomycin HCl 750 MG in Sodium Chloride 0.9% 250 ML 250 ML IVPB SCH (21:00)
[2020-03-03] MEDS: Acetaminophen 325 MG TAB PO PRN ×2 (03:10→21:03)
[2020-03-03] MEDS: Nitrofurantoin Monohyd/M-Cryst 100 MG CAP PO SCH ×2 (07:49→21:01)
[2020-03-03] MEDS: Loratadine 10 MG TAB PO SCH (07:49)
[2020-03-03] MEDS: Gabapentin 400 MG CAP PO SCH ×3 (07:49→21:03)
[2020-03-03] MEDS: Minoxidil 2.5 MG TAB PO SCH (07:49)
[2020-03-03] MEDS: Aspirin 81 mg Enteric Coated Tablet PO SCH (07:49)
[2020-03-03] MEDS: Allopurinol 100 MG TAB PO SCH (07:49)
[2020-03-03] MEDS: glipiZIDE 5 MG TAB PO SCH ×2 (07:49→16:56)
[2020-03-03] MEDS: Carvedilol 12.5 MG TAB PO SCH ×2 (07:50→21:03)
[2020-03-03] MEDS: Clopidogrel Bisulfate 75 MG TAB PO SCH (07:50)
[2020-03-03] MEDS: Polyethylene Glycol 3350 17 GM Packet PO SCH (07:50)
[2020-03-03] MEDS: Fish Oil 1,000 MG CAP PO SCH (07:50)
[2020-03-03] MEDS: Sodium Bicarbonate Tab 325 MG TAB PO SCH ×2 (07:50→21:02)
[2020-03-03] MEDS: Lantus 1000 UNITS/10 ML VIAL SC SCH ×2 (08:00→21:03)
[2020-03-03] MEDS: HumaLOG 300 UNITS/3 ML VIAL SC PRN ×4 (08:01→21:04)
[2020-03-03] MEDS: Ubidecarenone 50 MG CAP PO SCH (16:56)
[2020-03-04] MEDS: Lantus 1000 UNITS/10 ML VIAL SC SCH ×2 (08:23→21:40)
[2020-03-04] MEDS: HumaLOG 300 UNITS/3 ML VIAL SC PRN ×4 (08:24→21:41)
[2020-03-04] MEDS: Sodium Bicarbonate Tab 325 MG TAB PO SCH ×2 (08:25→21:40)
[2020-03-04] MEDS: Polyethylene Glycol 3350 17 GM Packet PO SCH (08:25)
[2020-03-04] MEDS: Minoxidil 2.5 MG TAB PO SCH (08:25)
[2020-03-04] MEDS: Nitrofurantoin Monohyd/M-Cryst 100 MG CAP PO SCH ×2 (08:25→21:40)
[2020-03-04] MEDS: Fish Oil 1,000 MG CAP PO SCH (08:26)
[2020-03-04] MEDS: Clopidogrel Bisulfate 75 MG TAB PO SCH (08:26)
[2020-03-04] MEDS: Carvedilol 12.5 MG TAB PO SCH ×2 (08:26→21:40)
[2020-03-04] MEDS: Allopurinol 100 MG TAB PO SCH (08:26)
[2020-03-04] MEDS: Aspirin 81 mg Enteric Coated Tablet PO SCH (08:26)
[2020-03-04] MEDS: Loratadine 10 MG TAB PO SCH (08:26)
[2020-03-04] MEDS: glipiZIDE 5 MG TAB PO SCH ×2 (08:26→17:14)
[2020-03-04] MEDS: Gabapentin 400 MG CAP PO SCH ×3 (08:26→21:40)
[2020-03-04] MEDS: Ubidecarenone 50 MG CAP PO SCH (17:14)
[2020-03-04] MEDS: Acetaminophen 325 MG TAB PO PRN (21:40)
[2020-03-05] MEDS: Loratadine 10 MG TAB PO SCH (08:29)
[2020-03-05] MEDS: Clopidogrel Bisulfate 75 MG TAB PO SCH (08:29)
[2020-03-05] MEDS: Gabapentin 400 MG CAP PO SCH ×3 (08:29→20:03)
[2020-03-05] MEDS: Nitrofurantoin Monohyd/M-Cryst 100 MG CAP PO SCH ×2 (08:29→20:03)
[2020-03-05] MEDS: Fish Oil 1,000 MG CAP PO SCH (08:29)
[2020-03-05] MEDS: Acetaminophen 325 MG TAB PO PRN ×2 (08:30→20:03)
[2020-03-05] MEDS: Aspirin 81 mg Enteric Coated Tablet PO SCH (08:30)
[2020-03-05] MEDS: Polyethylene Glycol 3350 17 GM Packet PO SCH (08:30)
[2020-03-05] MEDS: Sodium Bicarbonate Tab 325 MG TAB PO SCH ×2 (08:30→20:03)
[2020-03-05] MEDS: Allopurinol 100 MG TAB PO SCH (08:30)
[2020-03-05] MEDS: Minoxidil 2.5 MG TAB PO SCH (08:30)
[2020-03-05] MEDS: glipiZIDE 5 MG TAB PO SCH ×2 (08:30→16:46)
[2020-03-05] MEDS: Carvedilol 12.5 MG TAB PO SCH ×2 (08:30→20:03)
[2020-03-05] MEDS: Lantus 1000 UNITS/10 ML VIAL SC SCH ×2 (08:31→20:54)
[2020-03-05] MEDS: HumaLOG 300 UNITS/3 ML VIAL SC PRN ×4 (08:31→20:54)
[2020-03-05] MEDS: Ubidecarenone 50 MG CAP PO SCH (16:46)
[2020-03-06] MEDS: Acetaminophen/Codeine 30-300mg Tablet PO PRN (00:46)
[2020-03-06] MEDS: Polyethylene Glycol 3350 17 GM Packet PO SCH (08:24)
[2020-03-06] MEDS: Aspirin 81 mg Enteric Coated Tablet PO SCH (08:25)
[2020-03-06] MEDS: Minoxidil 2.5 MG TAB PO SCH (08:26)
[2020-03-06] MEDS: Sodium Bicarbonate Tab 325 MG TAB PO SCH ×2 (08:26→20:18)
[2020-03-06] MEDS: Allopurinol 100 MG TAB PO SCH (08:26)
[2020-03-06] MEDS: Carvedilol 12.5 MG TAB PO SCH ×2 (08:26→20:18)
[2020-03-06] MEDS: glipiZIDE 5 MG TAB PO SCH ×2 (08:26→16:44)
[2020-03-06] MEDS: Gabapentin 400 MG CAP PO SCH ×3 (08:26→20:18)
[2020-03-06] MEDS: Lantus 1000 UNITS/10 ML VIAL SC SCH ×2 (08:26→20:22)
[2020-03-06] MEDS: Loratadine 10 MG TAB PO SCH (08:26)
[2020-03-06] MEDS: Fish Oil 1,000 MG CAP PO SCH (08:26)
[2020-03-06] MEDS: Nitrofurantoin Monohyd/M-Cryst 100 MG CAP PO SCH ×2 (08:26→20:18)
[2020-03-06] MEDS: Clopidogrel Bisulfate 75 MG TAB PO SCH (08:26)
[2020-03-06] MEDS: HumaLOG 300 UNITS/3 ML VIAL SC PRN ×4 (08:27→20:23)
[2020-03-06] MEDS: EPOETIN ALFA-EPBX (NON-ESRD) 10,000 UNIT/ML VIAL SC SCH (08:28)
[2020-03-06] MEDS: Acetaminophen 325 MG TAB PO PRN (08:29)
[2020-03-06] MEDS: Ubidecarenone 50 MG CAP PO SCH (16:44)
[2020-03-07] MEDS: Minoxidil 2.5 MG TAB PO SCH (08:14)
[2020-03-07] MEDS: Fish Oil 1,000 MG CAP PO SCH (08:14)
[2020-03-07] MEDS: glipiZIDE 5 MG TAB PO SCH ×2 (08:14→16:15)
[2020-03-07] MEDS: Allopurinol 100 MG TAB PO SCH (08:14)
[2020-03-07] MEDS: Gabapentin 400 MG CAP PO SCH ×3 (08:14→21:03)
[2020-03-07] MEDS: Clopidogrel Bisulfate 75 MG TAB PO SCH (08:15)
[2020-03-07] MEDS: Aspirin 81 mg Enteric Coated Tablet PO SCH (08:15)
[2020-03-07] MEDS: Loratadine 10 MG TAB PO SCH (08:15)
[2020-03-07] MEDS: Sodium Bicarbonate Tab 325 MG TAB PO SCH ×2 (08:15→21:04)
[2020-03-07] MEDS: Carvedilol 12.5 MG TAB PO SCH ×2 (08:15→21:04)
[2020-03-07] MEDS: Lantus 1000 UNITS/10 ML VIAL SC SCH ×2 (08:16→20:59)
[2020-03-07] MEDS: Polyethylene Glycol 3350 17 GM Packet PO SCH ×2 (08:17→08:39)
[2020-03-07] MEDS: HumaLOG 300 UNITS/3 ML VIAL SC PRN ×3 (12:42→21:00)
[2020-03-07] MEDS: Ubidecarenone 50 MG CAP PO SCH (16:15)
[2020-03-07] MEDS: Acetaminophen 325 MG TAB PO PRN (17:03)
[2020-03-08 05:34] LABS: #Eosinphils 0.1 thou/uL (0.0-0.7); #Lymphocytes 1.5 thou/uL (1.20-3.40); #Monocytes 0.5 thou/uL (0.11-0.59); #Neutrophils 3.1 thou/uL (1.40-6.50); %Basophils 0.9 % (0.0-1.0); %Eosinophils 2.1 % (0.0-10.0); %Lymphocytes 28.8 % (21.0-51.0); %Monocytes 8.8 % (0.0-10.0); %Neutrophils 59.5 % (42.0-75.0); Hemoglobin 8.2 g/dL (14.0-18.0); Mean Corpuscular HGB CONC 32.3 g/dL (32.0-36.0); Mean Corpuscular Hemoglobin 26.6 pg (27.0-31.0); Mean Corpuscular Volume 82.2 fL (78.0-98.0); Mean Platelet Volume 5.2 fL (7.4-10.4); Platelet Count 230 thou/uL (130-400); RBC Distribution Width 17.5 % (11.5-14.5); Red Blood Cell (RBC) Count 3.07 mill/uL (4.70-6.10); White Blood Cell (WBC) Count 5.3 thou/uL (4.8-10.8)
[2020-03-08 05:46] LABS: Anion Gap 13 mmol/L (10-20); BUN (Urea Nitrogen) 22 mg/dL (8.4-25.7); Calc. Creatinine Clearance 59 mL/min (70-130); Calcium 9.7 mg/dL (7.8-10.44); Carbon Dioxide 28 mmol/L (23-31); Chloride 103 mmol/L (98-107); Estimated GFR-MDRD 53; Glucose 122 mg/dL (80-115); Potassium 4.8 mmol/L (3.5-5.1); Sodium 139 mmol/L (136-145)
[2020-03-08] MEDS: Aspirin 81 mg Enteric Coated Tablet PO SCH (08:14)
[2020-03-08] MEDS: Allopurinol 100 MG TAB PO SCH (08:14)
[2020-03-08] MEDS: Loratadine 10 MG TAB PO SCH (08:14)
[2020-03-08] MEDS: Fish Oil 1,000 MG CAP PO SCH (08:14)
[2020-03-08] MEDS: Gabapentin 400 MG CAP PO SCH ×4 (08:14→21:02)
[2020-03-08] MEDS: Sodium Bicarbonate Tab 325 MG TAB PO SCH ×2 (08:14→21:02)
[2020-03-08] MEDS: Carvedilol 12.5 MG TAB PO SCH ×2 (08:14→21:02)
[2020-03-08] MEDS: glipiZIDE 5 MG TAB PO SCH ×2 (08:14→17:09)
[2020-03-08] MEDS: Clopidogrel Bisulfate 75 MG TAB PO SCH (08:14)
[2020-03-08] MEDS: Polyethylene Glycol 3350 17 GM Packet PO SCH ×2 (08:15→10:16)
[2020-03-08] MEDS: Lantus 1000 UNITS/10 ML VIAL SC SCH ×2 (08:15→21:02)
[2020-03-08] MEDS: Minoxidil 2.5 MG TAB PO SCH (08:15)
[2020-03-08] MEDS: Ergocalciferol 1.25 MG(50,000 UNITS) CAP PO SCH (10:20)
[2020-03-08] MEDS: HumaLOG 300 UNITS/3 ML VIAL SC PRN ×3 (12:19→21:05)
[2020-03-08] MEDS: Ubidecarenone 50 MG CAP PO SCH (17:09)
[2020-03-09] MEDS: Acetaminophen 325 MG TAB PO PRN (02:49)
[2020-03-09] MEDS: Acetaminophen/Codeine 30-300mg Tablet PO PRN (02:52)
[2020-03-09] MEDS: Polyethylene Glycol 3350 17 GM Packet PO SCH (08:44)
[2020-03-09] MEDS: Allopurinol 100 MG TAB PO SCH (08:45)
[2020-03-09] MEDS: Sodium Bicarbonate Tab 325 MG TAB PO SCH ×2 (08:45→20:51)
[2020-03-09] MEDS: Clopidogrel Bisulfate 75 MG TAB PO SCH (08:45)
[2020-03-09] MEDS: Aspirin 81 mg Enteric Coated Tablet PO SCH (08:45)
[2020-03-09] MEDS: Minoxidil 2.5 MG TAB PO SCH (08:45)
[2020-03-09] MEDS: glipiZIDE 5 MG TAB PO SCH ×2 (08:45→16:22)
[2020-03-09] MEDS: Carvedilol 12.5 MG TAB PO SCH ×2 (08:45→20:52)
[2020-03-09] MEDS: Gabapentin 400 MG CAP PO SCH ×3 (08:46→20:52)
[2020-03-09] MEDS: Fish Oil 1,000 MG CAP PO SCH (08:46)
[2020-03-09] MEDS: Loratadine 10 MG TAB PO SCH (08:46)
[2020-03-09] MEDS: Lantus 1000 UNITS/10 ML VIAL SC SCH ×2 (08:47→21:26)
[2020-03-09] MEDS: HumaLOG 300 UNITS/3 ML VIAL SC PRN ×2 (13:50→21:24)
[2020-03-09] MEDS: Ubidecarenone 50 MG CAP PO SCH (16:22)
[2020-03-10] MEDS: glipiZIDE 5 MG TAB PO SCH ×2 (08:26→17:06)
[2020-03-10] MEDS: Minoxidil 2.5 MG TAB PO SCH (08:26)
[2020-03-10] MEDS: Loratadine 10 MG TAB PO SCH (08:26)
[2020-03-10] MEDS: Carvedilol 12.5 MG TAB PO SCH ×2 (08:26→20:31)
[2020-03-10] MEDS: Polyethylene Glycol 3350 17 GM Packet PO SCH (08:26)
[2020-03-10] MEDS: Aspirin 81 mg Enteric Coated Tablet PO SCH (08:26)
[2020-03-10] MEDS: Sodium Bicarbonate Tab 325 MG TAB PO SCH ×2 (08:26→20:31)
[2020-03-10] MEDS: Clopidogrel Bisulfate 75 MG TAB PO SCH (08:26)
[2020-03-10] MEDS: Gabapentin 400 MG CAP PO SCH ×3 (08:26→20:31)
[2020-03-10] MEDS: Allopurinol 100 MG TAB PO SCH (08:26)
[2020-03-10] MEDS: Lantus 1000 UNITS/10 ML VIAL SC SCH ×2 (08:27→20:29)
[2020-03-10] MEDS: HumaLOG 300 UNITS/3 ML VIAL SC PRN ×4 (08:28→20:31)
[2020-03-10] MEDS: Fish Oil 1,000 MG CAP PO SCH (08:35)
[2020-03-10] MEDS: Ubidecarenone 50 MG CAP PO SCH (17:06)
[2020-03-11] MEDS: Clopidogrel Bisulfate 75 MG TAB PO SCH (08:05)
[2020-03-11] MEDS: Gabapentin 400 MG CAP PO SCH ×4 (08:05→20:25)
[2020-03-11] MEDS: glipiZIDE 5 MG TAB PO SCH ×2 (08:05→16:59)
[2020-03-11] MEDS: Allopurinol 100 MG TAB PO SCH (08:05)
[2020-03-11] MEDS: Fish Oil 1,000 MG CAP PO SCH (08:05)
[2020-03-11] MEDS: Carvedilol 12.5 MG TAB PO SCH ×2 (08:06→20:25)
[2020-03-11] MEDS: Aspirin 81 mg Enteric Coated Tablet PO SCH (08:06)
[2020-03-11] MEDS: Minoxidil 2.5 MG TAB PO SCH (08:06)
[2020-03-11] MEDS: Loratadine 10 MG TAB PO SCH (08:06)
[2020-03-11] MEDS: Polyethylene Glycol 3350 17 GM Packet PO SCH (08:06)
[2020-03-11] MEDS: Lantus 1000 UNITS/10 ML VIAL SC SCH ×2 (08:06→21:23)
[2020-03-11] MEDS: Sodium Bicarbonate Tab 325 MG TAB PO SCH ×2 (08:06→20:25)
[2020-03-11] MEDS: HumaLOG 300 UNITS/3 ML VIAL SC PRN ×2 (12:38→17:01)
[2020-03-11] MEDS: Ubidecarenone 50 MG CAP PO SCH (17:00)
[2020-03-11] MEDS: Acetaminophen/Codeine 30-300mg Tablet PO PRN (22:30)
[2020-03-12] MEDS: Aspirin 81 mg Enteric Coated Tablet PO SCH (08:05)
[2020-03-12] MEDS: Fish Oil 1,000 MG CAP PO SCH (08:05)
[2020-03-12] MEDS: Gabapentin 400 MG CAP PO SCH ×3 (08:05→20:38)
[2020-03-12] MEDS: Carvedilol 12.5 MG TAB PO SCH ×2 (08:05→20:38)
[2020-03-12] MEDS: Allopurinol 100 MG TAB PO SCH (08:06)
[2020-03-12] MEDS: glipiZIDE 5 MG TAB PO SCH ×2 (08:06→15:43)
[2020-03-12] MEDS: Lantus 1000 UNITS/10 ML VIAL SC SCH ×2 (08:06→20:39)
[2020-03-12] MEDS: Minoxidil 2.5 MG TAB PO SCH (08:06)
[2020-03-12] MEDS: Clopidogrel Bisulfate 75 MG TAB PO SCH (08:06)
[2020-03-12] MEDS: Loratadine 10 MG TAB PO SCH (08:06)
[2020-03-12] MEDS: Polyethylene Glycol 3350 17 GM Packet PO SCH (08:08)
[2020-03-12] MEDS: Sodium Bicarbonate Tab 325 MG TAB PO SCH ×2 (10:47→20:35)
[2020-03-12] MEDS: HumaLOG 300 UNITS/3 ML VIAL SC PRN ×2 (12:03→17:13)
[2020-03-12] MEDS: Ubidecarenone 50 MG CAP PO SCH (17:07)
[2020-03-12] MEDS: Acetaminophen/Codeine 30-300mg Tablet PO PRN (20:36)
[2020-03-13] MEDS: Minoxidil 2.5 MG TAB PO SCH (08:27)
[2020-03-13] MEDS: Fish Oil 1,000 MG CAP PO SCH (08:28)
[2020-03-13] MEDS: Gabapentin 400 MG CAP PO SCH ×3 (08:28→20:29)
[2020-03-13] MEDS: glipiZIDE 5 MG TAB PO SCH ×2 (08:28→17:06)
[2020-03-13] MEDS: Loratadine 10 MG TAB PO SCH (08:28)
[2020-03-13] MEDS: Carvedilol 12.5 MG TAB PO SCH ×2 (08:28→20:31)
[2020-03-13] MEDS: Aspirin 81 mg Enteric Coated Tablet PO SCH (08:28)
[2020-03-13] MEDS: Allopurinol 100 MG TAB PO SCH (08:28)
[2020-03-13] MEDS: Sodium Bicarbonate Tab 325 MG TAB PO SCH ×2 (08:28→20:47)
[2020-03-13] MEDS: Clopidogrel Bisulfate 75 MG TAB PO SCH (08:28)
[2020-03-13] MEDS: Lantus 1000 UNITS/10 ML VIAL SC SCH ×2 (08:30→20:32)
[2020-03-13] MEDS: EPOETIN ALFA-EPBX (NON-ESRD) 10,000 UNIT/ML VIAL SC SCH (08:31)
[2020-03-13] MEDS: Polyethylene Glycol 3350 17 GM Packet PO SCH (08:37)
[2020-03-13] MEDS: HumaLOG 300 UNITS/3 ML VIAL SC PRN ×2 (12:25→17:07)
[2020-03-13] MEDS: Ubidecarenone 50 MG CAP PO SCH (17:06)
[2020-03-13] MEDS: Acetaminophen 325 MG TAB PO PRN (20:31)
[2020-03-14] MEDS: glipiZIDE 5 MG TAB PO SCH ×2 (08:47→18:03)
[2020-03-14] MEDS: Allopurinol 100 MG TAB PO SCH (08:47)
[2020-03-14] MEDS: Aspirin 81 mg Enteric Coated Tablet PO SCH (08:47)
[2020-03-14] MEDS: Carvedilol 12.5 MG TAB PO SCH ×2 (08:47→20:53)
[2020-03-14] MEDS: Clopidogrel Bisulfate 75 MG TAB PO SCH (08:48)
[2020-03-14] MEDS: Minoxidil 2.5 MG TAB PO SCH (08:48)
[2020-03-14] MEDS: Fish Oil 1,000 MG CAP PO SCH (08:48)
[2020-03-14] MEDS: Loratadine 10 MG TAB PO SCH (08:48)
[2020-03-14] MEDS: Gabapentin 400 MG CAP PO SCH ×3 (08:48→20:54)
[2020-03-14] MEDS: Sodium Bicarbonate Tab 325 MG TAB PO SCH ×2 (08:54→20:53)
[2020-03-14] MEDS: Polyethylene Glycol 3350 17 GM Packet PO SCH (08:54)
[2020-03-14] MEDS: HumaLOG 300 UNITS/3 ML VIAL SC PRN ×3 (08:55→18:07)
[2020-03-14] MEDS: Lantus 1000 UNITS/10 ML VIAL SC SCH ×2 (08:55→20:56)
[2020-03-14 12:17] VITALS: BMI 31.3
[2020-03-14] MEDS: Ubidecarenone 50 MG CAP PO SCH (18:03)
[2020-03-15] MEDS: Fish Oil 1,000 MG CAP PO SCH (08:05)
[2020-03-15] MEDS: Sodium Bicarbonate Tab 325 MG TAB PO SCH (08:06)
[2020-03-15] MEDS: glipiZIDE 5 MG TAB PO SCH (08:06)
[2020-03-15] MEDS: Minoxidil 2.5 MG TAB PO SCH (08:06)
[2020-03-15] MEDS: Allopurinol 100 MG TAB PO SCH (08:06)
[2020-03-15] MEDS: Clopidogrel Bisulfate 75 MG TAB PO SCH (08:06)
[2020-03-15] MEDS: Polyethylene Glycol 3350 17 GM Packet PO SCH (08:06)
[2020-03-15] MEDS: Gabapentin 400 MG CAP PO SCH (08:06)
[2020-03-15] MEDS: Aspirin 81 mg Enteric Coated Tablet PO SCH (08:06)
[2020-03-15] MEDS: Loratadine 10 MG TAB PO SCH (08:06)
[2020-03-15] MEDS: Carvedilol 12.5 MG TAB PO SCH (08:06)
[2020-03-15] MEDS: Lantus 1000 UNITS/10 ML VIAL SC SCH (08:07)
[2020-03-15] MEDS: Ergocalciferol 1.25 MG(50,000 UNITS) CAP PO SCH (08:12)
[2020-03-15 08:51] VITALS: BP 138/67; TEMP 97
[2020-03-15] MEDS: HumaLOG 300 UNITS/3 ML VIAL SC PRN (12:00)
--- NOTE | 2020-03-18 11:37 | DIS ---
DATE OF ADMISSION: 03/01/2020 DATE OF DISCHARGE: 03/15/2020 PRIMARY CARE PHYSICIAN: Basilio Persaud MD DISCHARGING PHYSICIAN: Basilio Persaud MD. DISCHARGE DISPOSITION: Back to his home. DISCHARGE ACTIVITY: The patient to ambulate with walker at all times. The patient to use right knee brace for ambulation. The patient to start outpatient physical therapy at [facility] in [place]. The patient to follow up with PCP within 1 week. The patient to follow up with orthopedic surgeon as outpatient. DISCHARGE DIAGNOSES: 1. Urosepsis, resolved. 2. Gait instability, improving. 3. Right knee osteoarthritis. 4. Diabetes type 2. 5. Hypertension. 6. Gout. 7. Chronic kidney disease, stage 3. 8. Anemia of chronic disease, stable. 9. Mild developmental delay. DISCHARGE MEDICATIONS: 1. Tylenol 650 q.4 p.r.n. 2. Tylenol No. 3 q.6 p.r.n. 3. Allopurinol 100 daily. 4. Aspirin 81 daily. 5. Coreg 12.5 b.i.d. 6. Vitamin D3, 50,000 units once a week. 7. Atorvastatin 80 daily. 8. Zyrtec 10 daily. 9. Plavix 75 daily. 10. CoQ10, 300 daily. 11. Ducor-3, 1000 daily. 12. Gabapentin 400 t.i.d. 13. Glipizide 10 mg b.i.d. 14. Minoxidil 2.5 daily. 15. Pantoprazole 40 daily. 16. Sodium bicarb 650 twice a day. 17. Lantus 5 units b.i.d. 18. Retacrit 10,000 units injection once a week. 19. MiraLAX packet, one pack with fluid daily. BRIEF HOSPITAL COURSE: Mr. Travis Michel is a 64-year-old male with mild developmental delay, who had presented to my office on the 26 of February for followup of his chronic disease. His sister noted that morning the patient was very confused, very lethargic, and he had a low grade fever. Sister also reported the day before, she noted his urine was strong smelling, and upon evaluation in my office, he had a temperature of 99.6, heart rate of 122 blood pressure of 102/50, and respirations 20. The patient was very lethargic, he was confused, he could not stand up, he was not even oriented to self, so the decision was to admit the patient immediately to the inpatient floor, and the patient was diagnosed with urosepsis. He was started with IV Rocephin and IV vancomycin and stat urine cultures and blood cultures and blood levels were done. Urine culture came back and confirmed E coli cause of urosepsis, and the patient progressively improved with IV fluids and IV antibiotics. After the completion of 5-day IV antibiotics, the patient was switched to oral antibiotics and he progressively improved. He was noted to be physically deconditioned, so he was evaluated by Physical Therapy and Occupational Therapy. On the 01 of March, the patient was transferred to [facility] rehabilitation inpatient swing bed, where he was able to complete the oral antibiotics for his urosepsis and also physical therapy. The patient's hospitalization was complicated by the right knee osteoarthritis, which affected his rehabilitation, but the patient was able to move on progressively well, but slowly with addition of a knee brace to the right knee. The patient significantly improved and on the day of discharge, he was able to ambulate with physical therapy with a rolling walker 160 feet. The patient during hospitalization, also his chronic kidney disease improved, his GFR on the 08 of March was 53, on admission on February 26 was 34. His hemoglobin on March 08 was 8.2, hematocrit 25.2. The decision was made for continuation of outpatient CBC and CMP. Upon discharge, the patient will follow up with graphics edit technician. The patient was discharged back home with family in a stable condition. Discharge vital signs; temperature 97.0, pulse 85, respirations 14, O2 saturations 100 on room air, blood pressure 138/67. Job ID: [id number] [facility]
--- NOTE | 2020-03-20 11:05 | PQF ---
CLINICAL DOCUMENTATION CLARIFICATION FORM: Dear : Basilio Persaud MD Date / Time: 03/20/2020 Please exercise your independent, professional judgment in responding to the clarification form. Clinical indicators are provided on the bottom of this form for your review Please check appropriate box(es): [x ] Sepsis due to: __U.T.I ecoli [ ] Severe sepsis with associated acute organ dysfunction: [ ] Acute Respiratory Failure [ ] Acute Kidney injury w/o ATN [ ] Acute Kidney Injury w ATN [ ] Encephalopathy (metabolic) (septic) [ ] Additional/Other: please specify: [ ] Septic Shock [ ] Localized infection without sepsis [ ] SIRS due to non-infectious process (please specify etiology) [ ] with organ dysfunction [ ] without organ dysfunction [ ] Other diagnosis (Please specify if any) [ ] Unable to determine In addition, please specify: Present on Admission (POA): [ x ] Yes [ ] No [ ] Unable to determine Physician Signature: Date/Time: For continuity of documentation, please document condition throughout progress notes and discharge summary. Thank You. To be completed by CDI/Coding staff for physician review: Present Clinical Indicators - Signs / Symptoms / Labs Results and Location in Medical Record [ X ] Altered mental status, increased confusion, obtunded Physician documentation on 03/01 [ x] Fever or hypothermia (<96.8 F/36 C or > 100.4 F/38C) Low grade fever Discharge summary on 03/17 [ ] Respiratory rate >20/min, hypoxemia, and or hypercapnia [ x ] Heart Rate/Tachycardia (>90 bpm), SBP<100mmHg HR- 122 - Physician documentation on 03/01 [ ] Acute organ dysfunction/failure [ ] Metabolic acidosis Lactic Acid >2mmol/L OR 36mg/dL, [ x ] Oliguria , increase BUN/Cr, decreased GFR, elevated liver enzymes Cr-1.61 - Laboratory on 03/08 [ ] Coag abnormalities, thrombocytopenia plts <100k [ ] Shock-hypotension resistant to IV fluid boluses [ ] WBC count (>12,000/mm^4 or <4000/mm^3 or 70% neuts, 10% bands) [x ] Urosepsis Physician documentation on 03/01 [ ] Positive blood cultures Present Risk Factors Results and Location in Medical Record [ x ] Urosepsis Physician documentation on 03/01 [x ] Pneumonia, UTI, infected wound, gangrenous gall bladder Diabetes or Cancer UTI - Physician documentation on 03/01 [ ] Surgery / surgical instrumentation / trauma Ruptured/perforated bowel, ruptured appendix [ ] Immunosuppression [ x] Advancing Age - 64 yrs Physician documentation on 03/01 Present Treatments Results and Location in Medical Record [ ] Initiation Sepsis Protocol ICU [ ] Daily CBC, blood/sputum/wound cx [ ] ID Consult [ x] IV Antibiotics Vancomycin 750 mg IV Medication on 03/01, 03/02 [ ] IV ?uids [ ] Vasopressors, meds [ ] Consultants; ID, GI, Pulmonary, Hematology CDS/Pastoral Worker Signature: AAS Phone #: Date/Time: 03/20/2020 This is a permanent part of the Medical Record [facility]
== END 2020-03-15 14:15 | disposition home or self-care (01) | DRG 872 ==
LOC: MADMS 15:25
PROVIDERS: ADMIT Family Medicine; ATTEND Family Medicine
DX: A41.9 Sepsis, unspecified organism (principal); N39.0 Urinary tract infection, site not specified; L97.429 Non-pressure chronic ulcer of left heel and midfoot with unspecified severity; L97.419 Non-pressure chronic ulcer of right heel and midfoot with unspecified severity; R26.9 Unspecified abnormalities of gait and mobility; M17.11 Unilateral primary osteoarthritis, right knee; E11.22 Type 2 diabetes mellitus with diabetic chronic kidney disease; D63.1 Anemia in chronic kidney disease; I12.9 Hypertensive chronic kidney disease with stage 1 through stage 4 chronic kidney disease, or unspecified chronic kidney disease; R62.50 Unspecified lack of expected normal physiological development in childhood; M10.9 Gout, unspecified; N18.3 Chronic kidney disease, stage 3 (moderate); R53.81 Other malaise; E78.5 Hyperlipidemia, unspecified; Z79.82 Long term (current) use of aspirin; Z79.899 Other long term (current) drug therapy; B96.20 Unspecified Escherichia coli [E. coli] as the cause of diseases classified elsewhere
CPT/HCPCS: 36416; 80048; 80202; 85025; 36415-59; J3370; J3490; J7050; Q5106

== ENCOUNTER 2020-08-30 13:06 | Outpatient (CLI) | payer MEDICARE, OTHER ==
[2020-08-30 13:43] LABS: Hemoglobin 9.1 g/dL (14.0-18.0); Mean Corpuscular HGB CONC 33.1 g/dL (32.0-36.0); Mean Corpuscular Hemoglobin 29.1 pg (27.0-31.0); Platelet Count 160 thou/uL (130-400); RBC Distribution Width 13.3 % (11.5-14.5); Red Blood Cell (RBC) Count 3.14 mill/uL (4.70-6.10); White Blood Cell (WBC) Count 6.6 thou/uL (4.8-10.8)
[2020-08-30 13:44] LABS: Band 3 % (5-11); Lymphocytes 22 % (21-51); MDiff Complete? YES; Manual Diff?? YES; Neutrophil 62 % (42-75)
[2020-08-30 13:45] LABS: Anisocytosis SLIGHT = 6-15 cells (100X) (0-5/hpf); Eosinophils 10 % (0-10); Monocytes 3 % (0-10); Platelet Morphology Comment Appears Adequate
[2020-08-30 13:52] LABS: ALT (SGPT) 11 U/L (8-55); AST (SGOT) 13 U/L (5-34); Albumin 3.4 g/dL (3.4-4.8); Alkaline Phosphatase 84 U/L (40-110); Anion Gap 14 mmol/L (10-20); BUN (Urea Nitrogen) 25 mg/dL (8.4-25.7); Bilirubin, Total 0.3 mg/dL (0.2-1.2); Calc. Creatinine Clearance 0 mL/min (70-130); Calcium 9.2 mg/dL (7.8-10.44); Carbon Dioxide 25 mmol/L (23-31); Chloride 105 mmol/L (98-107); Globulin 3.4 g/dL (2.4-3.5); Glucose 175 mg/dL (80-115); Protein, Total 6.8 g/dL (5.8-8.1); Sodium 140 mmol/L (136-145); Uric Acid 6.8 mg/dL (3.5-7.2)
== END 2020-08-30 13:07 | disposition home or self-care (01) ==
LOC: MADLAB 13:06
DX: I10 Essential (primary) hypertension (principal); L89.620 Pressure ulcer of left heel, unstageable; F03.90 Unspecified dementia, unspecified severity, without behavioral disturbance, psychotic disturbance, mood disturbance, and anxiety
CPT/HCPCS: 80053; 82728; 84550; 85025

== ENCOUNTER 2020-09-04 20:04 | Emergency (ER) | payer MEDICARE, OTHER ==
[2020-09-04] MEDS ORDERED: Silver Nitrate Application 1 EACH ONE ×2 (20:09→20:10)
== END 2020-09-04 20:45 ==
LOC: MADERS 20:04
DX: L76.21 Postprocedural hemorrhage of skin and subcutaneous tissue following a dermatologic procedure (principal); R21 Rash and other nonspecific skin eruption; E11.9 Type 2 diabetes mellitus without complications; E78.5 Hyperlipidemia, unspecified; E78.00 Pure hypercholesterolemia, unspecified; I10 Essential (primary) hypertension
CPT/HCPCS: 99283

== ENCOUNTER 2021-01-23 18:28 | Emergency (ER) | payer MEDICARE, MEDICAID ==
[2021-01-23] MEDS ORDERED: Acetaminophen 500 MG TAB ONE (19:16)
== END 2021-01-23 20:05 ==
LOC: MADERS 18:28
DX: S91.302A Unspecified open wound, left foot, initial encounter (principal); M25.511 Pain in right shoulder; R51.9 Headache, unspecified; X58.XXXA Exposure to other specified factors, initial encounter
CPT/HCPCS: 99284

== ENCOUNTER 2021-02-20 09:18 | Emergency (ER) | payer MEDICARE, MEDICAID ==
[~2021-02-20 09:18] MED LIST changes: -Sodium Chloride 0.9% 1,000 ML BAG ONE; +Sodium Chloride 0.9% 500 ML BAG ONE
[2021-02-20 10:07] LABS: #Eosinphils 0.1 thou/uL (0.0-0.7); #Lymphocytes 1.7 thou/uL (1.20-3.40); #Monocytes 0.5 thou/uL (0.11-0.59); #Neutrophils 4.4 thou/uL (1.40-6.50); %Basophils 0.3 % (0.0-1.0); %Eosinophils 0.9 % (0.0-10.0); %Lymphocytes 26.2 % (21.0-51.0); %Monocytes 7.1 % (0.0-10.0); %Neutrophils 65.4 % (42.0-75.0); Hemoglobin 10.3 g/dL (14.0-18.0); Mean Corpuscular HGB CONC 33.2 g/dL (32.0-36.0); Mean Corpuscular Volume 87.3 fL (78.0-98.0); Mean Platelet Volume 7.1 fL (7.4-10.4); Platelet Count 176 thou/uL (130-400); RBC Distribution Width 14.9 % (11.5-14.5); Red Blood Cell (RBC) Count 3.56 mill/uL (4.70-6.10); White Blood Cell (WBC) Count 6.7 thou/uL (4.8-10.8)
[2021-02-20 10:23] LABS: ALT (SGPT) 17 U/L (8-55); AST (SGOT) 14 U/L (5-34); Albumin 3.9 g/dL (3.4-4.8); Alkaline Phosphatase 87 U/L (40-110); Anion Gap 13 mmol/L (10-20); BUN (Urea Nitrogen) 37 mg/dL (8.4-25.7); Bilirubin, Total 0.4 mg/dL (0.2-1.2); Calc. Creatinine Clearance 0 mL/min (70-130); Calcium 10.2 mg/dL (7.8-10.44); Carbon Dioxide 26 mmol/L (23-31); Chloride 108 mmol/L (98-107); Globulin 3.8 g/dL (2.4-3.5); Glucose 126 mg/dL (80-115); Potassium 4.6 mmol/L (3.5-5.1); Protein, Total 7.7 g/dL (5.8-8.1); Sodium 142 mmol/L (136-145)
[2021-02-20 10:44] LABS: Bilirubin Negative (Negative); Blood, Urine Negative (Negative); Clarity Clear (Clear); Glucose, Urine (Dipstick) Negative (Negative); Ketone, Urine Negative (Negative); Leukocyte Negative (Negative); Nitrite Negative (Negative); Protein, Urine (Dipstick) Trace mg/dL (Neg-Trace); Specific Gravity, Urine 1.015 (1.005-1.030); Urobilinogen 0.2 mg/dL (Less than 2); pH, Urine 5.5 (5.0-9.0)
== END 2021-02-20 11:50 ==
LOC: MADERS 09:18
DX: E86.0 Dehydration (principal); R33.9 Retention of urine, unspecified; E11.9 Type 2 diabetes mellitus without complications; E78.5 Hyperlipidemia, unspecified; E78.00 Pure hypercholesterolemia, unspecified; I10 Essential (primary) hypertension
CPT/HCPCS: 51702; 70450; 71045; 80053; 81003; 84484; 85025; 93005; J7030

== ENCOUNTER 2021-03-15 23:08 | Emergency (ER) | payer MEDICARE, MEDICAID ==
[2021-03-15 23:31] LABS: Bilirubin Negative (Negative); Blood, Urine Negative (Negative); Clarity Clear (Clear); Glucose, Urine (Dipstick) Negative (Negative); Ketone, Urine Negative (Negative); Leukocyte Negative (Negative); Nitrite Negative (Negative); Protein, Urine (Dipstick) 30 mg/dL (Neg-Trace); Specific Gravity, Urine 1.015 (1.005-1.030); Urobilinogen 0.2 mg/dL (Less than 2); pH, Urine 5.5 (5.0-9.0)
[2021-03-15 23:32] LABS: RBC/HPF 0-3 HPF (0-3); Squamous Epithelial 0-3 HPF (0-3); WBC/HPF 0-3 HPF (0-3)
[2021-03-16 00:19] LABS: #Basophils 0.1 thou/uL (0.0-0.2); #Eosinphils 0.1 thou/uL (0.0-0.7); #Lymphocytes 2.1 thou/uL (1.20-3.40); #Monocytes 0.5 thou/uL (0.11-0.59); #Neutrophils 4.3 thou/uL (1.40-6.50); %Basophils 0.8 % (0.0-1.0); %Lymphocytes 29.7 % (21.0-51.0); %Monocytes 7.2 % (0.0-10.0); %Neutrophils 61.4 % (42.0-75.0); Hemoglobin 10.1 g/dL (14.0-18.0); Mean Corpuscular HGB CONC 32.8 g/dL (32.0-36.0); Mean Corpuscular Hemoglobin 28.6 pg (27.0-31.0); Mean Corpuscular Volume 87.2 fL (78.0-98.0); Mean Platelet Volume 7.2 fL (7.4-10.4); Platelet Count 184 thou/uL (130-400); RBC Distribution Width 14.1 % (11.5-14.5); Red Blood Cell (RBC) Count 3.54 mill/uL (4.70-6.10); White Blood Cell (WBC) Count 6.9 thou/uL (4.8-10.8)
[2021-03-16 00:40] LABS: ALT (SGPT) 16 U/L (8-55); AST (SGOT) 13 U/L (5-34); Albumin 4.1 g/dL (3.4-4.8); Alkaline Phosphatase 87 U/L (40-110); Anion Gap 17 mmol/L (10-20); BUN (Urea Nitrogen) 41 mg/dL (8.4-25.7); Bilirubin, Total 0.3 mg/dL (0.2-1.2); Calc. Creatinine Clearance 0 mL/min (70-130); Calcium 10.3 mg/dL (7.8-10.44); Carbon Dioxide 22 mmol/L (23-31); Chloride 104 mmol/L (98-107); Globulin 3.8 g/dL (2.4-3.5); Glucose 107 mg/dL (80-115); Lipase 62 U/L (8-78); Potassium 4.4 mmol/L (3.5-5.1); Protein, Total 7.9 g/dL (5.8-8.1); Sodium 139 mmol/L (136-145)
[2021-03-16] MEDS ORDERED: Acetaminophen 325 MG TAB ONE (01:51)
== END 2021-03-16 03:30 ==
LOC: MADERS 23:08
DX: M54.5 Low back pain (principal); E11.9 Type 2 diabetes mellitus without complications; E78.5 Hyperlipidemia, unspecified; E78.00 Pure hypercholesterolemia, unspecified; I10 Essential (primary) hypertension; Z79.82 Long term (current) use of aspirin; Z79.02 Long term (current) use of antithrombotics/antiplatelets; Z79.4 Long term (current) use of insulin; Z79.899 Other long term (current) drug therapy
CPT/HCPCS: 36415; 74176; 80053; 81003; 81015; 83690; 85025

== ENCOUNTER 2021-05-10 14:52 | Emergency (ER) | payer MEDICARE, MEDICAID ==
[2021-05-10] MEDS ORDERED: Sodium Chloride 0.9% 1,000 ML ONE (15:14)
[2021-05-10 15:24] LABS: #Basophils 0.2 thou/uL (0.0-0.2); #Lymphocytes 1.5 thou/uL (1.20-3.40); #Monocytes 0.9 thou/uL (0.11-0.59); #Neutrophils 9.2 thou/uL (1.40-6.50); %Basophils 1.3 % (0.0-1.0); %Eosinophils 0.2 % (0.0-10.0); %Lymphocytes 12.6 % (21.0-51.0); %Monocytes 7.3 % (0.0-10.0); %Neutrophils 78.6 % (42.0-75.0); Hemoglobin 9.8 g/dL (14.0-18.0); Mean Corpuscular HGB CONC 32.2 g/dL (32.0-36.0); Mean Corpuscular Hemoglobin 28.8 pg (27.0-31.0); Mean Corpuscular Volume 89.3 fL (78.0-98.0); Mean Platelet Volume 7.2 fL (7.4-10.4); Platelet Count 169 thou/uL (130-400); RBC Distribution Width 13.8 % (11.5-14.5); Red Blood Cell (RBC) Count 3.41 mill/uL (4.70-6.10); White Blood Cell (WBC) Count 11.7 thou/uL (4.8-10.8)
[2021-05-10 15:27] LABS: Bilirubin Negative (Negative); Blood, Urine Negative (Negative); Clarity Clear (Clear); Glucose, Urine (Dipstick) Negative (Negative); Ketone, Urine Negative (Negative); Leukocyte Negative (Negative); Nitrite Negative (Negative); Protein, Urine (Dipstick) 30 mg/dL (Neg-Trace); Urobilinogen 0.2 mg/dL (Less than 2); pH, Urine 6.5 (5.0-9.0)
[2021-05-10 15:33] LABS: Bacteria/HPF Rare-Few HPF (None Seen); RBC/HPF 0-3 HPF (0-3); Squamous Epithelial 0-3 HPF (0-3); WBC/HPF None Seen HPF (0-3)
[2021-05-10 15:36] LABS: ALT (SGPT) 12 U/L (8-55); AST (SGOT) 10 U/L (5-34); Albumin 3.8 g/dL (3.4-4.8); Alkaline Phosphatase 78 U/L (40-110); Anion Gap 14 mmol/L (10-20); BUN (Urea Nitrogen) 36 mg/dL (8.4-25.7); Calc. Creatinine Clearance 0 mL/min (70-130); Calcium 9.6 mg/dL (7.8-10.44); Carbon Dioxide 25 mmol/L (23-31); Chloride 104 mmol/L (98-107); Globulin 3.6 g/dL (2.4-3.5); Glucose 152 mg/dL (80-115); Potassium 4.7 mmol/L (3.5-5.1); Protein, Total 7.4 g/dL (5.8-8.1); Sodium 138 mmol/L (136-145)
[2021-05-10 15:43] LABS: Bilirubin, Total 0.8 mg/dL (0.2-1.2)
[2021-05-10] MEDS ORDERED: Sodium Chloride 0.9% 500 ML ONE (16:35)
[2021-05-10] MEDS ORDERED: Vancomycin HCl 750 MG VIAL ONE (16:35)
[2021-05-10 16:40] LABS: SARS-CoV-2 NAA Rapid Test Not Detected (NotDetected)
[2021-05-10] MEDS ORDERED: Nitroglycerin 2% Ointment 1 INCH/1 GM Packet ONE (18:23)
[2021-05-10] MEDS ORDERED: Aspirin Chewable 81 MG TAB ONE (18:23)
[2021-05-10 19:07] LABS: CKMB 1.4 ng/mL (0-6.6)
== END 2021-05-10 19:07 | disposition short-term general hospital (02) ==
LOC: MADERS 14:52
DX: A41.9 Sepsis, unspecified organism (principal); I12.9 Hypertensive chronic kidney disease with stage 1 through stage 4 chronic kidney disease, or unspecified chronic kidney disease; N18.9 Chronic kidney disease, unspecified; D63.1 Anemia in chronic kidney disease; E11.22 Type 2 diabetes mellitus with diabetic chronic kidney disease; Z20.822 Contact with and (suspected) exposure to COVID-19; I73.9 Peripheral vascular disease, unspecified; E78.5 Hyperlipidemia, unspecified; G62.9 Polyneuropathy, unspecified; Z79.1 Long term (current) use of non-steroidal anti-inflammatories (NSAID); Z79.899 Other long term (current) drug therapy; Z79.82 Long term (current) use of aspirin; Z79.4 Long term (current) use of insulin
CPT/HCPCS: 71045; 80053; 82553; 83605; 84484; 85025; 87040; 87086; U0002; 36415; 81003; 81015; 96365; 96366; 96367; J1956; J3370; J7030; J7050

== ENCOUNTER 2021-06-18 11:24 | Emergency (ER) | payer MEDICARE, OTHER | END 2021-06-18 13:45 | LOC: MADERS 11:24 | DX: I12.9 Hypertensive chronic kidney disease with stage 1 through stage 4 chronic kidney disease, or unspecified chronic kidney disease (principal); N18.9 Chronic kidney disease, unspecified; D63.1 Anemia in chronic kidney disease; I73.9 Peripheral vascular disease, unspecified; E11.22 Type 2 diabetes mellitus with diabetic chronic kidney disease; E78.5 Hyperlipidemia, unspecified; Z86.73 Personal history of transient ischemic attack (TIA), and cerebral infarction without residual deficits | CPT/HCPCS: 71045; 93005 ==

== ENCOUNTER 2021-07-10 18:02 | Emergency (ER) | payer MEDICARE, OTHER ==
[2021-07-10 18:59] LABS: #Eosinphils 0.1 thou/uL (0.0-0.7); #Lymphocytes 0.9 thou/uL (1.20-3.40); #Monocytes 0.7 thou/uL (0.11-0.59); #Neutrophils 5.2 thou/uL (1.40-6.50); %Basophils 0.6 % (0.0-1.0); %Eosinophils 1.3 % (0.0-10.0); %Lymphocytes 12.4 % (21.0-51.0); %Monocytes 10.7 % (0.0-10.0); %Neutrophils 75.1 % (42.0-75.0); Hemoglobin 9.9 g/dL (14.0-18.0); Mean Corpuscular HGB CONC 32.5 g/dL (32.0-36.0); Mean Corpuscular Hemoglobin 28.8 pg (27.0-31.0); Mean Corpuscular Volume 88.6 fL (78.0-98.0); Platelet Count 168 thou/uL (130-400); RBC Distribution Width 13.6 % (11.5-14.5); Red Blood Cell (RBC) Count 3.44 mill/uL (4.70-6.10); White Blood Cell (WBC) Count 6.9 thou/uL (4.8-10.8)
[2021-07-10 19:16] LABS: ALT (SGPT) 15 U/L (8-55); AST (SGOT) 11 U/L (5-34); Acetaminophen Less than 6.0 mcg/mL (10.0-30.0); Albumin 4.2 g/dL (3.4-4.8); Alcohol Less than 10 mg/dL (Less than 10); Alkaline Phosphatase 78 U/L (40-110); Anion Gap 13 mmol/L (10-20); BUN (Urea Nitrogen) 47 mg/dL (8.4-25.7); Bilirubin, Total 0.4 mg/dL (0.2-1.2); CK (CPK) 153 U/L (30-200); Calc. Creatinine Clearance 0 mL/min (70-130); Calcium 10.3 mg/dL (7.8-10.44); Carbon Dioxide 25 mmol/L (23-31); Chloride 106 mmol/L (98-107); Globulin 3.9 g/dL (2.4-3.5); Glucose 109 mg/dL (80-115); Potassium 4.4 mmol/L (3.5-5.1); Protein, Total 8.1 g/dL (5.8-8.1); Salicylate Less than 8.0 mg/dL (15.0-30.0); Sodium 140 mmol/L (136-145)
[2021-07-10 19:23] LABS: Amphetamine Not Detected (NotDetected); Barbiturates Screen Not Detected (NotDetected); Benzodiazepine Screen Not Detected (NotDetected); Cocaine Metabolite Screen Not Detected (NotDetected); Medtox Control Line Valid? VALID (VALID); Methadone Not Detected (NotDetected); Methamphetamine Not Detected (NotDetected); Opiate Screen Not Detected (NotDetected); Oxycodone Screen Not Detected (NotDetected); Phencyclidine (PCP) Not Detected (NotDetected); THC/Cannabinoid Screen Not Detected (NotDetected); Tricyclic Screen Not Detected (NotDetected)
== END 2021-07-10 22:55 ==
LOC: MADERS 18:02
DX: R45.851 Suicidal ideations (principal); R45.87 Impulsiveness; E78.5 Hyperlipidemia, unspecified; E78.00 Pure hypercholesterolemia, unspecified; D64.9 Anemia, unspecified; I12.9 Hypertensive chronic kidney disease with stage 1 through stage 4 chronic kidney disease, or unspecified chronic kidney disease; E11.22 Type 2 diabetes mellitus with diabetic chronic kidney disease; N18.9 Chronic kidney disease, unspecified; I73.9 Peripheral vascular disease, unspecified; F03.90 Unspecified dementia, unspecified severity, without behavioral disturbance, psychotic disturbance, mood disturbance, and anxiety; E11.42 Type 2 diabetes mellitus with diabetic polyneuropathy; Z86.73 Personal history of transient ischemic attack (TIA), and cerebral infarction without residual deficits; Z79.82 Long term (current) use of aspirin; Z79.4 Long term (current) use of insulin
CPT/HCPCS: 80053; 80306; 80307; 82550; 84443; 85025; 99285